=== PATIENT | female | born 2000 | race Caucasian/White ===

== ENCOUNTER 2023-08-26 18:02 | Emergency (ER) | payer SELFPAY ==
[2023-08-26 18:10] VITALS: BP 141/100
--- NOTE | 2023-08-26 19:35 | ED.GENMED ---
History of Present Illness
General
Chief Complaint: Musculo-Skeletal Complaint
Source: patient
Exam Limitations: none
Time Seen by Provider: 08/26/23 18:52
Nursing documentation reviewed up to this point in time: agreed with
Travel History
Have you had any contact with someone who has COVID-19?: No
Do you have any symptoms of coronavirus? Fever > 100 degrees, chills, cough, shortness of breath, sore throat, loss of taste or smell, muscle aches, or headache?: No
History of Present Illness
History of Present Illness:
Patient is a 23-year-old female who was brought to the ER by mom for evaluation. Patient reports yesterday she was squatting and stood up and felt a popping sensation in the back of her left ankle. She has been able to bear weight she does however
have some discomfort and has some tingling to the bottom of her foot. She has not rested it.
Review of Systems
Review of Systems
Allergies reviewed?: Yes
All Other Systems: ROS reviewed and negative except as documented in HPI and ROS
Constitutional: Reports no symptoms
Musculoskeletal: Reports other (left ankle pain/foot numbness )
Skin: Reports no symptoms
Neurological: Reports no symptoms
Psychiatric: Reports no symptoms
Phy Exam
General Physical Exam
General Presentation: no apparent distress
General age: appears stated age
General Skin: warm and dry
General Habitus: obese
General Mental: alert
Neurological Exam
Neurological Exam: alert and oriented x3
Musculoskeletal Exam
Musculoskeletal Exam: other (left lower extremity with strong pulses no obvious swelling mildly tender to posterior ankle however Achilles tendon intact mild nonspecific medial lateral tenderness normal dorsiflexion plantarflexion normal distal
sensation)
Skin Exam
Skin Exam: normal color and warm/dry
Psychiatric Exam
Psychiatric Exam: normal mood/affect
Course
Orders/Labs/Results
Orders:
Orders
08/26/23 18:14
Ankle, left 3 view CR [CR Ankle - Left Min 3 Views ] Urgent
Comment:
Reason For Exam: left ankle injury yesterday.
08/26/23 19:43
Vital Signs- Treatment ONCE
Frequency: Once
Vital Signs
Initial and Last Documented VS:
Initial Vital Signs
Temp Pulse Resp BP Pulse Ox
98.4 F 120 18 141/100 97
08/26/23 18:10 08/26/23 18:10 08/26/23 18:10 08/26/23 18:10 08/26/23 18:10
Last Documented Vital Signs
Temp Pulse Resp BP Pulse Ox
98.1 F 118 17 141/91 95
08/26/23 19:50 08/26/23 19:50 08/26/23 19:50 08/26/23 19:50 08/26/23 19:50
MDM/Problems Addressed
Differential Diagnosis Includes:
Not limited to sprain, fracture Achilles tendon injury
MDM/Problems Addressed:
Achilles tendon intact no obvious fracture on x-ray patient is ambulatory weightbearing in no acute distress. no calf tenderness .
Patient complains of some numbness to the bottom of her foot however she has normal sensation strong pulses that she has not rested this. I recommend patient icing elevating and resting. She has an Maurice wrap at home and does not want crutches as
she reports has crutches at home. With symptoms I did review the importance of outpatient follow-up with Ortho for reevaluation.
*Radiology
Radiology exam reviewed: radiology read reviewed
*Critical Care Note
Total Time (30-74mins, 75-104mins- exclusive of procedures): Not Applicable
ED Attending Note
-
Portions of this chart may have been created with voice recognition software.� Occasional wrong word or��sound alike� substitutions may have occurred due to the inherent limitations of voice recognition software.
Discharge Plan
Departure
Patient Disposition: Home (Routine Discharge)
Date of Disposition: 08/26/23
Time of Disposition: 19:43
Patient with high blood pressure during this ER visit?: Yes
Condition: Fair
Covid-19: Not Applicable
Discharge Problem:
Ankle sprain
Instructions: Ankle Sprain (DC)
Referrals:
Jae Hassan MD [Active] -
NONE,* [Family Provider] -
Stand Alone Forms: Return to Work
Activity Restrictions/Additional Instructions:
Keep elevated as much as possible . continue to ice affected area for next 24 hrs for 20 minutes at a time several times a day.
You may wear your Maurice wrap for support remove at night while sleeping you may also use crutches as needed.
Ibuprofen every 8 hours as needed.
Follow-up with orthopedics in the next several days as needed.
Interventions
Interventions:
*Risk Screen - Suicide Last Done: 08/26/23 18:10
*General Assessment Last Done: 08/26/23 18:10
*Neglect/Abuse Screening Last Done: 08/26/23 18:10
*Nursing Disposition Last Done: 08/26/23 20:00
ED-Musculoskeletal Assessment Last Done: 08/26/23 19:30
Discharge Date and Time
Discharge Date/Time: 08/26/23 20:00
Print Language: DJIBOUTIAN
[2023-08-26 19:50] VITALS: BP 141/91
== END 2023-08-26 20:00 | disposition home or self-care (01) ==
LOC: EMR 18:02
PROVIDERS: EMERGENCY PHYSICIAN Emergency Medicine
DX: S93.402A Sprain of unspecified ligament of left ankle, initial encounter (principal); X50.1XXA Overexertion from prolonged static or awkward postures, initial encounter; R03.0 Elevated blood-pressure reading, without diagnosis of hypertension
CPT/HCPCS: 99283; 73610

== ENCOUNTER 2023-08-30 09:12 | Emergency (ER) | payer OTHER, SELFPAY ==
[2023-08-30 09:28] VITALS: BP 165/102
[2023-08-30 09:59] LABS: COVID-19 Antigen Negative (Negative)
--- NOTE | 2023-08-30 10:19 | ED.GENMED ---
History of Present Illness
General
Chief Complaint: Cold/Flu/URI Symptoms
Source: patient
Exam Limitations: none
Time Seen by Provider: 08/30/23 10:08
Nursing documentation reviewed up to this point in time: agreed with
Travel History
Have you had any contact with someone who has COVID-19?: No
Do you have any symptoms of coronavirus? Fever > 100 degrees, chills, cough, shortness of breath, sore throat, loss of taste or smell, muscle aches, or headache?: Yes
Symptoms:: sore throat
History of Present Illness
History of Present Illness:
23-year-old female with a history of PCOS and GERD presents for sore throat over the past 4 days with nasal congestion, productive cough, and now laryngitis this morning. She has not had a fever. It is very painful to swallow but she is tolerating
her secretions. She is not having any shortness of breath or chest pain. She last took Tylenol cold and sinus yesterday
Past History
Past History
ED Past Medical History: GERD and Other (PCOS)
Social History
Tobacco: Non-smoker
Alcohol: None
Drug: None
Personal: Single
Living: with family
Employment: Employed
Review of Systems
Review of Systems
Allergies reviewed?: Yes
All Other Systems: Not applicable
Phy Exam
Physical Exam
Physical Exam:
GENERAL: Alert , in no apparent distress
EYE: pupils equal and reactive
NECK: Supple
ENT: b/l TM s clear, mild nasal mucosa inflammation pharynx erythematous some tonsillar hypertrophy 2+ with no obvious exudates, no unilateral tonsillar swelling, midline uvula, hoarse voice
CARDIAC: Regular rate and rhythm, no edema
LUNGS: Clear breath sounds bilaterally, no acute respiratory distress, no wheezes/rales/rhonchi, occ cough
NEUROLOGICAL: Alert and oriented, no focal neuro deficits
SKIN: Warm and dry, skin intact.
MUSCULOSKELETAL: No edema, well perfused.
PSYCH: Normal and appropriate interaction.
Course
Orders/Labs/Results
Orders:
Orders
08/30/23 09:32
COVID-19 Antigen Urgent
Source: Nasal Swab
Influenza A+B Rapid Molecular Urgent
[facility] Source: Nasal Swab
Specimen Description:
Date Specimen was Collected: 08/30/23
Time Specimen was Collected: 09:29
Rapid Strep Group A Urgent
[facility] Source: Throat/Pharynx
Specimen Description:
Date Specimen was Collected: 08/30/23
Time Specimen was Collected: :
08/30/23 10:19
Amoxicillin 875 mg/Clav 125 mg [Augmentin 875 mg/125 mg] 1 tablet PO NOW STA
Vital Signs
Initial and Last Documented VS:
Initial Vital Signs
Temp Pulse Resp BP Pulse Ox
98.4 F 98 17 165/102 99
08/30/23 09:28 08/30/23 09:28 08/30/23 09:28 08/30/23 09:28 08/30/23 09:28
Last Documented Vital Signs
Temp Pulse Resp BP Pulse Ox
98.4 F 98 17 165/102 99
08/30/23 09:28 08/30/23 09:28 08/30/23 09:28 08/30/23 09:28 08/30/23 09:28
MDM/Problems Addressed
Differential Diagnosis Includes:
URI, strep throat, mono, COVID, flu
MDM/Problems Addressed:
23-year-old female with 4 days of sore throat, nasal congestion, mild cough, no fever. She has a hoarse voice this morning. On exam patient is afebrile, nontoxic-appearing, tolerating her secretions, with 2-3+ tonsils, no exudate, erythematous
throat, hoarse voice but not hot potato voice, some nasal inflammation, clear lungs. It surprising that the patient's strep came back positive given her additional symptoms of congestion and cough. She does have some sinus drainage. She has been
on antibiotics previously and tolerated Augmentin well, will prescribe Augmentin. She has not had a antibiotics in at least 3 months.
*Critical Care Note
Total Time (30-74mins, 75-104mins- exclusive of procedures): Not Applicable
ED Attending Note
-
Portions of this chart may have been created with voice recognition software.� Occasional wrong word or��sound alike� substitutions may have occurred due to the inherent limitations of voice recognition software.
Discharge Plan
Departure
Patient Disposition: Home (Routine Discharge)
Date of Disposition: 08/30/23
Time of Disposition: 10:22
Patient with high blood pressure during this ER visit?: Yes
Condition: Fair
Covid-19: Negative COVID-19
Discharge Problem:
Strep pharyngitis
Instructions: Strep Throat (DC), BLOOD PRESSURE
Prescriptions:
New
amoxicillin-pot clavulanate 875-125 mg tablet
1 tab PO BID Qty: 20 0RF
Referrals:
UNKNOWN - PT DOES,NOT KNOW [Family Provider] -
Activity Restrictions/Additional Instructions:
You tested positive for strep throat. Take the medication as prescribed for 7 to 10 days. Take Tylenol or ibuprofen as needed for pain. Drink fluids, use a humidifier. Return for any concerns like not tolerating her secretions, severe sore
throat, unilateral sore throat, high fever on antibiotics, worsening voice change or any concerns
Interventions
Interventions:
*Risk Screen - Suicide Last Done: 08/30/23 10:51
*General Assessment Last Done: 08/30/23 10:51
*Neglect/Abuse Screening Last Done: 08/30/23 10:51
*Nursing Disposition Last Done: 08/30/23 10:51
ED- Pulmonary Assessment Last Done: 08/30/23 10:30
Discharge Date and Time
Discharge Date/Time: 08/30/23 10:52
Print Language: TELUGU
[2023-08-30] MEDS: AUGMENTIN 875 MG/125 MG 1 TABLET PO (10:40)
== END 2023-08-30 10:52 | disposition home or self-care (01) ==
LOC: EMR 09:12
PROVIDERS: Emergency Medicine; EMERGENCY PHYSICIAN Emergency Medicine
DX: J02.0 Streptococcal pharyngitis (principal); E28.2 Polycystic ovarian syndrome; K21.9 Gastro-esophageal reflux disease without esophagitis
CPT/HCPCS: 99283; 87070; 87502; 87811; 87880

== ENCOUNTER 2023-09-29 08:57 | Emergency (ER) | payer SELFPAY ==
[2023-09-29 09:18] VITALS: BP 154/106
--- NOTE | 2023-09-29 09:19 | ED.GENMED ---
History of Present Illness
General
Chief Complaint: Cough
Source: patient
Exam Limitations: none
Time Seen by Provider: 09/29/23 09:15
Travel History
Have you had any contact with someone who has COVID-19?: No
Do you have any symptoms of coronavirus? Fever > 100 degrees, chills, cough, shortness of breath, sore throat, loss of taste or smell, muscle aches, or headache?: Yes
Symptoms:: cough
History of Present Illness
History of Present Illness:
See MDM
Past History
Past History
ED Past Medical History: GERD and Other (PCOS)
Social History
Tobacco: Non-smoker
Alcohol: None
Drug: None
Personal: Single
Living: with family
Employment: Employed
Phy Exam
Physical Exam
Physical Exam:
See MDM
Course
Orders/Labs/Results
Orders:
Orders
09/29/23 09:19
Dexamethasone Pf [Decadron] 10 mg PO NOW STA
CR Chest - 2 Views Urgent
Comment:
Reason For Exam: Cough, SOB
Vital Signs
Initial and Last Documented VS:
Initial Vital Signs
Temp Pulse Resp BP Pulse Ox
98.2 F 102 17 154/106 97
09/29/23 09:18 09/29/23 09:18 09/29/23 09:18 09/29/23 09:18 09/29/23 09:18
Last Documented Vital Signs
Temp Pulse Resp BP Pulse Ox
98.2 F 102 17 154/106 97
09/29/23 09:18 09/29/23 09:18 09/29/23 09:18 09/29/23 09:18 09/29/23 09:18
MDM/Problems Addressed
Differential Diagnosis Includes:
HPI and MDM Narrative:
23-year-old female presenting with persistent cough and congestion. She was recently treated for strep throat 1 month ago. Her sore throat has improved drastically but she still has adductive cough. Patient concerned about possible pneumonia.
She does have a history of seasonal allergies but states this feels different. The productive cough is worse in the morning and clears somewhat throughout the day
Will start steroids and obtain chest x-ray
Physical exam
General: Well appearing and non-toxic
HEENT: protecting airway. Posterior pharynx mildly edematous with postnasal drip. No exudate
Neck: appears supple
CV: No evidence of cyanosis
Resp: No accessory muscle use. Lungs clear
Abd: Non-distended
Extremities: No deformities
Neuro: alert
Psych: Normal affect
Skin: Intact
Problems Addressed including Acute and Chronic Conditions affecting care:
1. URI
Acuity: acute
Prognosis: stable
Details: Will start chest x-ray to rule out pneumonia
Updates
Chest x-ray clear. Will place on Medrol Dosepak
Differential Diagnosis (but not limited to): Viral syndrome, pneumonia, allergic rhinitis
Testing considered: Strep throat testing
Drug therapy (if applicable): OTC meds, please see d/c instruction regarding Rx drugs
Amount and/or Complexity of Data Reviewed
Clinical info obtained from: Patient
External data reviewed: N/A
Labs I independently reviewed (but not limited to): N/A
Radiology: X-ray independently reviewed: Chest x-ray clear
Pulse Ox: not hypoxic
EKG independently reviewed: N/A
Commercial Driver'S License Driver: N/A
Critical Care: N/A
Risk of Complication:
Social Determinants of health: Good social support
Discussed with other providers: N/A
Escalation of Care includes Admit/Obs: After being observed in the Emergency Department, pt stable for discharge.
Occasional wrong word or 'sound a like' substitutions may have occurred due to the inherent limitations of voice recognition software. Read the chart carefully and recognize, using context, where substitutions have occurred.
*Critical Care Note
Total Time (30-74mins, 75-104mins- exclusive of procedures): Not Applicable
ED Attending Note
-
Portions of this chart may have been created with voice recognition software.� Occasional wrong word or��sound alike� substitutions may have occurred due to the inherent limitations of voice recognition software.
Discharge Plan
Departure
Patient Disposition: Home (Routine Discharge)
Date of Disposition: 09/29/23
Time of Disposition: 10:51
Patient with high blood pressure during this ER visit?: Yes
Discharge Problem:
URI with cough and congestion
Instructions: BLOOD PRESSURE
Prescriptions:
New
methylprednisolone [Medrol (Maximiliano)] 4 mg tablets,dose pack
See Rx Instructions .ROUTE .COMPLEX Qty: 21 0RF
Rx Instructions:
orally per package directions
No Action
amoxicillin-pot clavulanate 875-125 mg tablet
1 tab PO BID Qty: 20 0RF
Referrals:
NONE,* [Family Provider] -
Activity Restrictions/Additional Instructions:
Please return for any worsening symptoms.
You may return at any time if you have further concerns.
Please follow up with your doctor at the first available appointment, preferably this week.
Thank you for choosing [facility].
Interventions
Interventions:
*Risk Screen - Suicide Last Done: 09/29/23 09:18
*General Assessment Last Done: 09/29/23 09:18
*Neglect/Abuse Screening Last Done: 09/29/23 09:18
*ED COVID-19 Vaccine History Last Done: 09/29/23 09:18
ED- Pulmonary Assessment Last Done: 09/29/23 09:18
Discharge Date and Time
Print Language: CZECH
[2023-09-29] MEDS: DECADRON 10 MG PO (09:24)
== END 2023-09-29 11:02 | disposition home or self-care (01) ==
LOC: EMR 08:57
PROVIDERS: EMERGENCY PHYSICIAN Student in an Organized Health Care Education/Training Program
DX: J06.9 Acute upper respiratory infection, unspecified (principal); K21.9 Gastro-esophageal reflux disease without esophagitis; E28.2 Polycystic ovarian syndrome
CPT/HCPCS: 99283; 71046

== ENCOUNTER 2023-11-07 12:38 | Emergency (ER) | payer SELFPAY ==
[2023-11-07 12:39] VITALS: BP 176/106
[2023-11-07 13:23] VITALS: BMI 62.1
[2023-11-07 13:25] LABS: Urine Albumin Trace (Neg - Trace); Urine Bilirubin 1+ (Negative); Urine Character Clear (Clear); Urine Color Yellow; Urine Glucose Negative (Negative); Urine Ketone Trace (Negative); Urine Leukocyte Trace (Negative); Urine Nitrite Negative (Negative); Urine Occult Blood Negative (Negative); Urine Specific Gravity 1.025 (<1.030); Urine Urobilinogen Negative (Neg - 1+)
[2023-11-07 13:37] VITALS: BP 139/87
[2023-11-07 13:48] LABS: % Basophils 0.9 % (0-2); % Eosinophils 0.6 % (0-6); % Immature Granulocytes 0.6 % (0-0.5); % Lymphocytes 30.3 % (20.5-51.1); % Monocytes 8.9 % (1.7-9.3); % Neutrophils 58.7 % (42.2-75.2); Absolute Basophils 0.1 10^3/uL (0-0.2); Absolute Eosinophils 0.1 10^3/uL (0-0.7); Absolute Immature Granulocytes 0.1 10^3/uL (0-0.05); Absolute Monocytes 0.9 10^3/uL (0.1-0.6); Absolute Neutrophils 5.8 10^3/uL (1.4-6.5); Hematocrit 35.7 % (37.0-47.0); Hemoglobin 12.1 g/dL (12.0-16.0); Mean Corp Hgb Conc. 33.9 g/dL (33.0-37.0); Mean Corpuscular Volume 76.8 fL (81.0-99.0); Mean Platelet Volume 9.8 fL (7.4-10.4); Nucleated Red Blood Cells % 0 %; Platelet Count 348 10^3/uL (130-400); Red Blood Cell Count 4.65 10^6/uL (4.20-5.40); Red Cell Dist. Width 14.3 % (11.5-14.5)
[2023-11-07 13:53] LABS: Urine Bacteria Moderate (Negative); Urine Calcium Oxalate Crystals Present; Urine Red Blood Cell 0-2 /HPF (0-2)
[2023-11-07 14:06] LABS: ALT (SGPT) 126 U/L (0-35); AST (SGOT) 115 U/L (14-36); Albumin 4.5 g/dl (3.5-5.0); Alkaline Phosphatase 72 U/L (38-126); Blood Urea Nitrogen 12 mg/dl (7-17); Calcium 9.6 mg/dl (8.4-10.2); Carbon Dioxide 25 mmol/L (22-30); Chloride 105 mmol/L (98-107); Estimated Creatinine Clearance > 125 ml/min; Glucose 79 mg/dl (70-99); Potassium 4.2 mmol/L (3.5-5.1); Sodium 139 mmol/L (135-145); Total Bilirubin 0.5 mg/dl (0.2-1.3); Total Protein 6.9 g/dl (6.3-8.2); eGFR > 60.00
[2023-11-07 14:17] LABS: Troponin I < 0.012 ng/ml
[2023-11-07 14:29] VITALS: BP 127/81
[2023-11-07 14:39] LABS: D-Dimer 0.39 ug/mlFEU (0.00-0.50)
--- NOTE | 2023-11-07 14:41 | ED.GENMED ---
History of Present Illness
General
Chief Complaint: Chest Pain
Source: patient
Exam Limitations: none
Time Seen by Provider: 11/07/23 13:25
History of Present Illness
History of Present Illness:
23-year-old female presents with onset of chest pain heart racing and shortness of breath while at work today. She states she was watching children play outside and developed the symptoms. She notes since being here her symptoms have improved
somewhat but still present with some tightness. She has a history of PCOS. She is on metformin for this. No recent travel or surgery. She is not anticoagulated. She does not smoke. No leg swelling or calf pain. No other complaints at this time
Past History
Past History
ED Past Medical History: GERD and Other (PCOS)
Social History
Tobacco: Non-smoker
Alcohol: None
Drug: None
Personal: Single
Living: with family
Employment: Employed
Phy Exam
Physical Exam
Physical Exam:
General: Well-appearing obese female no acute respiratory distress
HEENT: Normocephalic atraumatic
Heart: Regular but tachycardic
Lungs: Breath sounds distant bilaterally secondary to body habitus but no obvious wheeze or rales
Extremities: No cyanosis or edema
Skin: Warm no rash
Neurologic: Alert and oriented x 3
Scores
Heart Score for Chest Pain Patients
STEMI patient?: No
History: Slightly or Non-Suspicious
ECG: Normal
Age: </= 45 years
Risk Factors: No Risk Factors
Troponin: </= Normal Limit
Heart Score for Chest Pain Patients: 0
Heart Score Risk: 2.5% MACE over next 6 weeks
Course
Orders/Labs/Results
Orders:
Orders
11/07/23 12:42
EKG [Electrocardiogram (*1)] Urgent
Reason for Study: Chest Pain
EKG- Treatment ONCE
11/07/23 13:12
Urinalysis Reflex To Culture Urgent
Date Specimen was Collected: 11/07/23
Time Specimen was Collected: 13:02
Urine Microscopic Reflex Cult Urgent
Urine Culture Urgent
[facility] Source: U
Specimen Description:
Date Specimen was Collected: 11/07/23
Time Specimen was Collected: 13:02
11/07/23 13:41
Complete Blood Count/With Diff Urgent
Comprehensive Metabolic Panel Urgent
Troponin I Urgent
11/07/23 14:13
D-Dimer Urgent
Abnormal Lab Results
11/07/23 11/07/23
13:12 13:41
Hct 35.7 L %
(37.0-47.0)
MCV 76.8 L fL
(81.0-99.0)
MCH 26.0 L pg
(27.0-31.0)
Abs Immat Gran (auto) 0.1 H 10^3/uL
(0-0.05)
Absolute Monos (auto) 0.9 H 10^3/uL
(0.1-0.6)
Immature Gran % 0.6 H %
(0-0.5)
Creatinine 0.5 L mg/dL
(0.6-1.0)
AST 115 H U/L
(14-36)
ALT 126 H U/L
(0-35)
Urine Ketones Trace A
(Negative)
Urine Bilirubin 1+ A
(Negative)
Leukocyte Esterase Rfl Trace A
(Negative)
Urine Bacteria (Reflex) Moderate A
(Negative)
11/07/23 13:41
11/07/23 13:41
Vital Signs
Initial and Last Documented VS:
Initial Vital Signs
Temp Pulse Resp BP Pulse Ox
99 F 115 16 176/106 96
11/07/23 12:39 11/07/23 12:39 11/07/23 12:39 11/07/23 12:39 11/07/23 12:39
Last Documented Vital Signs
Temp Pulse Resp BP Pulse Ox
99 F 56 16 127/81 98
11/07/23 12:39 11/07/23 14:29 11/07/23 14:29 11/07/23 14:29 11/07/23 14:29
MDM/Problems Addressed
Differential Diagnosis Includes:
Chest pain or shortness of breath. Consider arrhythmia unlikely be ACS however will check troponin. Consider PE given tachycardia. D-dimer pending. Imaging based on D-dimer result. Hydration ordered as well as this could be related to
dehydration
*Critical Care Note
Total Time (30-74mins, 75-104mins- exclusive of procedures): Not Applicable
Update Note
Update Note:
Troponin normal D-dimer normal. Patient feeling much better upon reassessment. She may have had a heat reaction being outside. She was hydrated here. Recommended continued hydration at home stable for discharge
ED Attending Note
-
Portions of this chart may have been created with voice recognition software.� Occasional wrong word or��sound alike� substitutions may have occurred due to the inherent limitations of voice recognition software.
Discharge Plan
Departure
Patient Disposition: Home (Routine Discharge)
Date of Disposition: 11/07/23
Time of Disposition: 15:38
Patient with high blood pressure during this ER visit?: No
Discharge Problem:
Chest pain
Instructions: Chest Pain PCP Follow Up
Prescriptions:
No Action
amoxicillin-pot clavulanate 875-125 mg tablet
1 tab PO BID Qty: 20 0RF
methylprednisolone [Medrol (Maximiliano)] 4 mg tablets,dose pack
See Rx Instructions .ROUTE .COMPLEX Qty: 21 0RF
Rx Instructions:
orally per package directions
Referrals:
[facility] [Outside]
NONE,* [Family Provider] -
Stand Alone Forms: Return to Work
Activity Restrictions/Additional Instructions:
Stay hydrated. Return here for worsening symptoms otherwise follow-up with family doctor
Interventions
Interventions:
*Risk Screen - Suicide Last Done: 11/07/23 12:39
*General Assessment Last Done: 11/07/23 12:39
*Neglect/Abuse Screening Last Done: 11/07/23 12:39
ED- Fall Risk Assessment Last Done: 11/07/23 13:24
*ED COVID-19 Vaccine History Last Done: 11/07/23 13:24
ED- Cardiac Assessment Last Done: 11/07/23 13:24
Discharge Date and Time
Print Language: LAO
== END 2023-11-07 15:57 | disposition home or self-care (01) ==
LOC: EMR 12:38
PROVIDERS: Physician Assistant; EMERGENCY PHYSICIAN Emergency Medicine
DX: R07.89 Other chest pain (principal)
CPT/HCPCS: 99284; 80053; 81003; 81015; 84484; 85025; 85379; 87086; 93005

== ENCOUNTER 2023-11-13 06:50 | Emergency (ER) | payer SELFPAY ==
[2023-11-13 06:52] VITALS: BP 154/117
--- NOTE | 2023-11-13 07:28 | ED.GENMED ---
History of Present Illness
General
Chief Complaint: Abdominal Symptoms
Time Seen by Provider: 11/13/23 07:07
History of Present Illness
History of Present Illness:
23 yo female presents for evaluation of loose stool x 5 days. Began after eating [employer]. 3-5 episodes daily, non watery, non bloody. Mild abd cramping and fatigue noted. Able to eat and drink otherwise. No ill contacts at home. Of note, was treated
w/ both abx and steroids in past 3 mos for upper respiratory symptoms
Past History
Past History
ED Past Medical History: GERD and Other (PCOS)
Social History
Tobacco: Non-smoker
Alcohol: None
Drug: None
Personal: Single
Living: with family
Employment: Employed
Review of Systems
Review of Systems
Allergies reviewed?: Yes
All Other Systems: ROS reviewed and negative except as documented in HPI and ROS
Phy Exam
Physical Exam
Physical Exam:
GEN: Well appearing, NAD, WDWN
HEENT: Oral mucosa moist, no scleral icterus
Cardiac: Regular rate
Lung: No respiratory distress, no tachypnea
MSK: No gross deformity or injuries
Skin: Good color, no pallor or jaundice, no rashes
Neuro: AO x3, moves all extremities freely
Psych: Calm, cooperative
Course
Orders/Labs/Results
Orders:
Orders
11/13/23 07:17
0.9% Sodium Chloride 1000 ml [Nss] 1,000 ml IV BOLUS
11/13/23 07:32
Complete Blood Count/No Diff Urgent
Comprehensive Metabolic Panel Urgent
Stool Culture Urgent
[facility] Source: Feces/Stool
Specimen Description:
Date Specimen was Collected: 11/13/23
Time Specimen was Collected: 07:21
Abnormal Lab Results
11/13/23
07:32
MCV 78.2 L fL
(81.0-99.0)
MCH 25.9 L pg
(27.0-31.0)
Glucose 103 H mg/dl
(70-99)
AST 151 H U/L
(14-36)
ALT 149 H U/L
(0-35)
11/13/23 07:32
11/13/23 07:32
Vital Signs
Initial and Last Documented VS:
Initial Vital Signs
Temp Pulse Resp BP Pulse Ox
98.7 F 104 16 154/117 96
11/13/23 06:52 11/13/23 06:52 11/13/23 06:52 11/13/23 06:52 11/13/23 06:52
Last Documented Vital Signs
Temp Pulse Resp BP Pulse Ox
98.7 F 96 15 147/96 98
11/13/23 06:52 11/13/23 08:27 11/13/23 08:27 11/13/23 08:27 11/13/23 08:27
MDM/Problems Addressed
MDM/Problems Addressed:
23 yo female presents with diarrhea, non watery. Does have some C diff risk factors but stool specimen provided in ED clearly not sales account representative of C diff. Stool Cx pending. Labs reassuring, educated on supportive care. Also discussed gradual uptick
in LFTs, needs PCP f/u for this, likely due to fatty liver disease
*Critical Care Note
Total Time (30-74mins, 75-104mins- exclusive of procedures): Not Applicable
ED Attending Note
-
Portions of this chart may have been created with voice recognition software.� Occasional wrong word or��sound alike� substitutions may have occurred due to the inherent limitations of voice recognition software.
Discharge Plan
Departure
Patient Disposition: Home (Routine Discharge)
Date of Disposition: 11/13/23
Time of Disposition: 07:58
Patient with high blood pressure during this ER visit?: Yes
Discharge Problem:
Diarrhea, Transaminitis
Instructions: Diarrhea in teens and adults
Prescriptions:
New
ondansetron 4 mg tablet,disintegrating
4 mg PO TIDPRN PRN (Reason: nausea/vomiting) Qty: 10 0RF
No Action
amoxicillin-pot clavulanate 875-125 mg tablet
1 tab PO BID Qty: 20 0RF
methylprednisolone [Medrol (Maximiliano)] 4 mg tablets,dose pack
See Rx Instructions .ROUTE .COMPLEX Qty: 21 0RF
Rx Instructions:
orally per package directions
Stand Alone Forms: Return to Work
Activity Restrictions/Additional Instructions:
Your liver enzymes are elevated, more so than your last visit. This likely represents fatty liver disease, however should be followed routinely by your primary doctor
Your stool test should be resulted in 48 hours
Interventions
Interventions:
*Risk Screen - Suicide Last Done: 11/13/23 07:07
*Neglect/Abuse Screening Last Done: 11/13/23 07:07
ED- Fall Risk Assessment Last Done: 11/13/23 07:17
*ED COVID-19 Vaccine History Last Done: 11/13/23 06:52
*Nursing Disposition Last Done: 11/13/23 08:27
QA-Utowdn-Abhhigtjvu Assessment Last Done: 11/13/23 07:17
Discharge Date and Time
Discharge Date/Time: 11/13/23 08:35
Print Language: ARMENIAN
[2023-11-13 07:30] VITALS: BP 147/95
[2023-11-13] MEDS: NSS 1000 IV (07:39)
[2023-11-13 07:51] LABS: Hematocrit 38.4 % (37.0-47.0); Hemoglobin 12.7 g/dL (12.0-16.0); Mean Corp Hgb Conc. 33.1 g/dL (33.0-37.0); Mean Corpuscular Hgb 25.9 pg (27.0-31.0); Mean Corpuscular Volume 78.2 fL (81.0-99.0); Mean Platelet Volume 10.1 fL (7.4-10.4); Platelet Count 330 10^3/uL (130-400); Red Blood Cell Count 4.91 10^6/uL (4.20-5.40); Red Cell Dist. Width 14.3 % (11.5-14.5); White Blood Cell Count 7.3 10^3/uL (4.8-10.8)
[2023-11-13 07:54] LABS: ALT (SGPT) 149 U/L (0-35); AST (SGOT) 151 U/L (14-36); Albumin 4.3 g/dl (3.5-5.0); Alkaline Phosphatase 76 U/L (38-126); Blood Urea Nitrogen 11 mg/dl (7-17); Calcium 9.3 mg/dl (8.4-10.2); Carbon Dioxide 25 mmol/L (22-30); Chloride 103 mmol/L (98-107); Glucose 103 mg/dl (70-99); Potassium 4.4 mmol/L (3.5-5.1); Sodium 139 mmol/L (135-145); Total Bilirubin 0.5 mg/dl (0.2-1.3); Total Protein 6.8 g/dl (6.3-8.2); eGFR > 60.00
[2023-11-13 08:27] VITALS: BP 147/96
== END 2023-11-13 08:35 | disposition home or self-care (01) ==
LOC: EMR 06:50
PROVIDERS: Physician Assistant; EMERGENCY PHYSICIAN Emergency Medicine
DX: R19.7 Diarrhea, unspecified (principal); R74.01 Elevation of levels of liver transaminase levels; K21.9 Gastro-esophageal reflux disease without esophagitis; E28.2 Polycystic ovarian syndrome
CPT/HCPCS: 99282; 96360; 80053; 85027; 87045; 87046; 87077; 87427

== ENCOUNTER 2024-01-07 19:27 | Emergency (ER) | payer OTHER, SELFPAY ==
--- NOTE | 2024-01-07 19:30 | ED.PDOC.TRB ---
ED Provider Triage
-
Patient seen by provider in Triage?: Seen in Triage
This is a 23 year old female that comes in with c/o UTI symptoms. States that this started 3 days ago. States that she is having urinary frequency and burning.
[2024-01-07 19:33] VITALS: BP 171/118
[2024-01-07 19:48] LABS: Urine Albumin Trace (Neg - Trace); Urine Bilirubin 1+ (Negative); Urine Character Clear (Clear); Urine Color Yellow; Urine Glucose Negative (Negative); Urine Ketone Negative (Negative); Urine Leukocyte 1+ (Negative); Urine Nitrite Negative (Negative); Urine Occult Blood Negative (Negative); Urine Specific Gravity 1.025 (<1.030); Urine Urobilinogen Negative (Neg - 1+)
[2024-01-07 19:58] LABS: Urine Red Blood Cell 0-2 /HPF (0-2); Urine Squamous Cell >30 /LPF (Few)
[2024-01-07 19:59] LABS: Urine Bacteria Many (Negative)
--- NOTE | 2024-01-07 20:40 | ED.GENMED ---
History of Present Illness
General
Chief Complaint: Urinary Symptoms
Source: patient
Exam Limitations: none
History of Present Illness
History of Present Illness:
This is a 23 year old female that comes in with c/o urinary burning and frequency. States that this started about 3 days ago. States that she just felt cold but no shaking chills. States that she has had abd discomfort that feels like period
cramping. Denies any fever, chest pain, SOB, nausea, vomiting, diarrhea, headache dizziness.
Past History
Past History
ED Past Medical History: GERD, HTN and Other (PCOS)
ED Past Surgical History: None
Social History
Tobacco: Non-smoker
Alcohol: None
Drug: Marijuana
Personal: Single
Living: with family
Employment: Employed
Review of Systems
Review of Systems
All Other Systems: ROS reviewed and negative except as documented in HPI and ROS
Constitutional: Reports no symptoms; Denies fever or chills
EENT: Reports no symptoms
Respiratory: Reports no symptoms
Cardiac: Reports no symptoms
ABD/GI: Reports abdominal pain (Cramping feeling); Denies nausea, vomiting or diarrhea
: Reports dysuria and frequency; Denies urgency
Musculoskeletal: Reports no symptoms
Skin: Reports no symptoms
Neurological: Reports no symptoms; Denies dizzy or headache
Psychiatric: Reports no symptoms
Phy Exam
General Physical Exam
General Presentation: well appearing and no apparent distress
General age: appears stated age
General Skin: warm and dry
General Habitus: normal
General Mental: alert
General Hydration: appears well hydrated
Eye Exam
Eye Exam: EOMI
Musculoskeletal Exam
Musculoskeletal Exam: full ROM and no edema
Skin Exam
Skin Exam: normal color, warm/dry, no rash and no petechia
Psychiatric Exam
Psychiatric Exam: normal mood/affect
Course
Orders/Labs/Results
Orders:
Orders
01/07/24 19:42
Urinalysis Reflex To Culture Urgent
Date Specimen was Collected: 01/07/24
Time Specimen was Collected: 19:35
Urine Microscopic Reflex Cult Urgent
Urine Culture Urgent
SOCORRO Source: U
Specimen Description:
Date Specimen was Collected: 01/07/24
Time Specimen was Collected: 19:35
Abnormal Lab Results
01/07/24
19:42
Urine Bilirubin 1+ A
(Negative)
Leukocyte Esterase Rfl 1+ A
(Negative)
Urine WBC (Reflex) 11-15 A /HPF
(0-5)
Urine Bacteria (Reflex) Many A
(Negative)
Urine positive for infection
Vital Signs
Initial and Last Documented VS:
Initial Vital Signs
Temp Pulse Resp BP Pulse Ox
97.8 F 102 20 171/118 96
01/07/24 19:33 01/07/24 19:33 01/07/24 19:33 01/07/24 19:33 01/07/24 19:33
Last Documented Vital Signs
Temp Pulse Resp BP Pulse Ox
97.8 F 102 20 171/118 96
01/07/24 19:33 01/07/24 19:33 01/07/24 19:33 01/07/24 19:33 01/07/24 19:33
MDM/Problems Addressed
Differential Diagnosis Includes:
UTI,
MDM/Problems Addressed:
THIS IS A @$ YEAR OLD FEMALE THAT COMES IN WITH C?O URINARY SYMPTOMS.
Will get urine.
Spoke with patient and explained that her urine is questionable for infection. However, with patient c/o burning, frequency will treat for UTI.
Chronic conditions affecting care:
NA
Acute Exacerbation and/or Progression of Chronic Illness:
NA
*Pulse Oximetry
Patient hypoxic: no
*EKG
Interpreted by ED Provider?: NA
Rate: EKG- N/A
*Pot Press Operator Interpretation
Rate: Pot Press Operator- N/A
*Critical Care Note
Total Time (30-74mins, 75-104mins- exclusive of procedures): Not Applicable
ED Attending Note
-
Portions of this chart may have been created with voice recognition software.� Occasional wrong word or��sound alike� substitutions may have occurred due to the inherent limitations of voice recognition software.
Discharge Plan
Departure
Patient Disposition: Home (Routine Discharge)
Date of Disposition: 01/07/24
Time of Disposition: 20:47
Patient with high blood pressure during this ER visit?: Yes
Condition: Good
Covid-19: Not Applicable
Discharge Problem:
Urinary tract infection
Instructions: Urinary Tract Infection, Adult (DC), BLOOD PRESSURE
Prescriptions:
New
cephalexin 500 mg capsule
500 mg PO BID 7 Days Qty: 13 0RF
Activity Restrictions/Additional Instructions:
As discussed, your urine is contaminated but there may be possible infection. Please increase your water intake to 8-8oz glasses daily. A prescription has been sent to your pharmacy. Please take as directed until finished. Follow up with the family
doctor for a repeat urine to make sure that the infection is gone. IF YOU HAVE FEVER, INCREASED OR CHANGING ABD PAIN, OR YOU HAVE ANY OTHER CONCERNS PLEASE RETURN TO THE EMERGENCY ROOM.
Discharge Date and Time
Print Language: [place] LEONE[place]
[2024-01-07 20:43] VITALS: BP 131/85
[2024-01-07] MEDS: Pyridium 200 MG PO (20:50)
[2024-01-07] MEDS: KEFLEX 500 MG PO (20:50)
== END 2024-01-07 20:56 | disposition home or self-care (01) ==
LOC: EMR 19:27
PROVIDERS: Clinical Nurse Specialist Family Health; EMERGENCY PHYSICIAN Emergency Medicine
DX: N39.0 Urinary tract infection, site not specified (principal); I10 Essential (primary) hypertension
CPT/HCPCS: 99283; 81003; 81015; 87086

== ENCOUNTER 2024-01-28 10:39 | Emergency (ER) | payer OTHER, SELFPAY ==
[2024-01-28 10:51] VITALS: BP 166/112
[2024-01-28 11:30] VITALS: BP 141/71
[2024-01-28 11:43] VITALS: BMI 58.6
--- NOTE | 2024-01-28 12:01 | ED.GENMED ---
History of Present Illness
<Anastasiia Easton PA-C - Last Filed: 01/28/24 15:32>
General
Chief Complaint: Chest Pain
Source: patient
Exam Limitations: none
Time Seen by Provider: 01/28/24 11:38
Nursing documentation reviewed up to this point in time: agreed with
History of Present Illness
History of Present Illness:
Patient is a 23 year old female with hx HTN, PCOS, GERD presenting for evaluation of mid sternal chest pain ongoing over the past three days. Patient describes a dull ache in her substernal chest relatively constant since onset. Symptoms mildly
worse with exertion and deep inspiration. Associated with mild shortness of breath. Patient denies any fever, chills, cough, back pain, abdominal pain. No pain or swelling her lower extremities.
Patient does note pain seemed slightly worse today and she woke up with a mild headache prompting her visit to the emergency department today.
Patient denies any recent travel. No recent surgeries. No exogenous hormone use. No personal or family history of blood clots or clotting disorders.
Past History
<Anastasiia Easton PA-C - Last Filed: 01/28/24 15:32>
Past History
ED Past Medical History: GERD, HTN and Other (PCOS)
ED Past Surgical History: None
Social History
Tobacco: Non-smoker
Alcohol: None
Drug: Marijuana
Personal: Single
Living: with family
Employment: Employed
Review of Systems
<Anastasiia Easton PA-C - Last Filed: 01/28/24 15:32>
Review of Systems
Allergies reviewed?: Yes
All Other Systems: ROS reviewed and negative except as documented in HPI and ROS
Phy Exam
<Anastasiia Easton PA-C - Last Filed: 01/28/24 15:32>
Physical Exam
Physical Exam:
Vitals: Hypertensive, tachycardic. Otherwise vital signs stable.
General: Patient is well appearing, no acute distress
Skin: Warm and dry, no rashes or lesions
Head: Normocephalic, atraumatic
Eyes: Sclera nonicteric. EOMs intact. No nystagmus.
Throat: Protecting airway
Neck: Normal ROM, no cervical spine tenderness, no meningismus
Cardiac: Regular rate and rhythm, no murmurs.
Pulm: Normal respiratory effort, no wheezes, rales, rhonchi heard on exam.
Abdomen: No abdominal tenderness.
Extremities: No evidence of cyanosis or edema. Great distal pulses
Neuro: Great distal pulses.
Psychiatric: Normal affect.
Scores
<Anastasiia Easton PA-C - Last Filed: 01/28/24 15:32>
Heart Score for Chest Pain Patients
STEMI patient?: No
History: Slightly or Non-Suspicious
ECG: Normal
Age: </= 45 years
Risk Factors: 1 or 2 Risk Factors
Troponin: </= Normal Limit
Heart Score for Chest Pain Patients: 1
Heart Score Risk: 2.5% MACE over next 6 weeks
Course
<Anastasiia Easton PA-C - Last Filed: 01/28/24 15:32>
Orders/Labs/Results
Orders:
Orders
01/28/24 10:39
ECG [Electrocardiogram (*1)] Urgent
Reason for Study: Chest Pain
EKG- Treatment ONCE
01/28/24 11:46
Electrocardiogram (*1) Urgent
Reason for Study: Chest Pain
Cardiac Monitoring- Treatment ONCE
IV Insert/Care/Rem.- Treatment PRN
O2 Therapy [RESP] Urgent
Titrate/Wean O2 to maintain O2 sat greater than (%): 90
Special Instructions: Maintain sats >/=90%
Pulse Ox/spot Check [RESP] Urgent
Quantity: 1
Special Instructions: ON ROOM AIR
01/28/24 11:55
Complete Blood Count/With Diff Urgent
Comprehensive Metabolic Panel Urgent
HCG, Serum Qualitative Screen Urgent
Comment: ADD ON
Troponin I Urgent
01/28/24 12:03
0.9% Sodium Chloride 1000 ml [Nss] 1,000 ml IV BOLUS
Ketorolac [Toradol] 15 mg IV NOW STA
01/28/24 12:17
Add On- LAB Urgent
Tests Added?: serum qual hcg
01/28/24 13:27
D-Dimer Urgent
01/28/24 14:01
CR Chest - 2 Views Urgent
Comment:
Reason For Exam: substernal chest pain
Abnormal Lab Results
01/28/24
11:55
MCV 80.7 L fL
(81.0-99.0)
MCH 26.6 L pg
(27.0-31.0)
MCHC 32.9 L g/dL
(33.0-37.0)
Absolute Monos (auto) 0.7 H 10^3/uL
(0.1-0.6)
Creatinine 0.5 L mg/dL
(0.6-1.0)
Glucose 112 H mg/dl
(70-99)
AST 80 H U/L
(14-36)
ALT 105 H U/L
(0-35)
01/28/24 11:55
01/28/24 11:55
Vital Signs
Initial and Last Documented VS:
Initial Vital Signs
Temp Pulse Resp BP Pulse Ox
98.5 F 111 18 166/112 96
01/28/24 10:51 01/28/24 10:51 01/28/24 10:51 01/28/24 10:51 01/28/24 10:51
Last Documented Vital Signs
Temp Pulse Resp BP Pulse Ox
98.5 F 100 24 128/78 96
01/28/24 10:51 01/28/24 13:45 01/28/24 13:45 01/28/24 13:00 01/28/24 13:45
<Lb You, DO - Last Filed: 01/28/24 14:35>
Orders/Labs/Results
Orders:
Orders
01/28/24 10:39
ECG [Electrocardiogram (*1)] Urgent
Reason for Study: Chest Pain
EKG- Treatment ONCE
01/28/24 11:46
Electrocardiogram (*1) Urgent
Reason for Study: Chest Pain
Cardiac Monitoring- Treatment ONCE
IV Insert/Care/Rem.- Treatment PRN
O2 Therapy [RESP] Urgent
Titrate/Wean O2 to maintain O2 sat greater than (%): 90
Special Instructions: Maintain sats >/=90%
Pulse Ox/spot Check [RESP] Urgent
Quantity: 1
Special Instructions: ON ROOM AIR
01/28/24 11:55
Complete Blood Count/With Diff Urgent
Comprehensive Metabolic Panel Urgent
HCG, Serum Qualitative Screen Urgent
Comment: ADD ON
Troponin I Urgent
01/28/24 12:03
0.9% Sodium Chloride 1000 ml [Nss] 1,000 ml IV BOLUS
Ketorolac [Toradol] 15 mg IV NOW STA
01/28/24 12:17
Add On- LAB Urgent
Tests Added?: serum qual hcg
01/28/24 13:27
D-Dimer Urgent
01/28/24 14:01
CR Chest - 2 Views Urgent
Comment:
Reason For Exam: substernal chest pain
Abnormal Lab Results
01/28/24
11:55
MCV 80.7 L fL
(81.0-99.0)
MCH 26.6 L pg
(27.0-31.0)
MCHC 32.9 L g/dL
(33.0-37.0)
Absolute Monos (auto) 0.7 H 10^3/uL
(0.1-0.6)
Creatinine 0.5 L mg/dL
(0.6-1.0)
Glucose 112 H mg/dl
(70-99)
AST 80 H U/L
(14-36)
ALT 105 H U/L
(0-35)
01/28/24 11:55
01/28/24 11:55
Vital Signs
Initial and Last Documented VS:
Initial Vital Signs
Temp Pulse Resp BP Pulse Ox
98.5 F 111 18 166/112 96
01/28/24 10:51 01/28/24 10:51 01/28/24 10:51 01/28/24 10:51 01/28/24 10:51
Last Documented Vital Signs
Temp Pulse Resp BP Pulse Ox
98.5 F 100 24 128/78 96
01/28/24 10:51 01/28/24 13:45 01/28/24 13:45 01/28/24 13:00 01/28/24 13:45
<Anastasiia Easton PA-C - Last Filed: 01/28/24 15:32>
MDM/Problems Addressed
Differential Diagnosis Includes:
Not limited to: Muscle strain, GERD, viral illness, dehydration, doubt ACS or PE
MDM/Problems Addressed:
23-year-old female presenting with 3 days of substernal chest discomfort and mild shortness of breath. Notes mild pleuritic and exertional component to symptoms. No known inciting trauma or event. Patient tachycardic and hypertensive on arrival
to emergency department. Oxygenating well at 96% on room air. Physical exam as above. Patient well-appearing, in no apparent respiratory distress. Mildly tachycardic, regular heart rhythm. Mild reproducible tenderness to mid chest. Lungs are
clear to auscultation bilaterally. Patient has no lower extremity edema, erythema, or tenderness. Patient perfusing well with great distal pulses. No focal neurologic deficits. Differential somewhat broad at this time although considerations
include muscle strain, costochondritis, pleurisy, viral illness, pericarditis. Doubt ACS. Lower suspicion for PE although given tachycardia and mild pleuritic component�will obtain D-dimer. Will check basic labs, troponin, . Will give
fluids and Toradol. EKG nonischemic. Will reassess
Chronic conditions affecting care:
Hypertension
Acute Exacerbation and/or Progression of Chronic Illness:
Acutely hypertensive
<Anastasiia Easton PA-C - Last Filed: 01/28/24 15:32>
*Radiology
Radiology exam reviewed: preliminary read by ED provider and radiology read reviewed
*Pulse Oximetry
Patient hypoxic: no
*EKG
Interpreted by ED Provider?: Yes
EKG Intrepretation Date: 01/28/24
Interpretation: normal
Comparison EKG: no changes
Heart Rate: 102
Rate: tachycardiac
Rhythm: sinus
[place]: normal axis
Interval: normal interval
QRS Pattern: normal QRS
Ischemia: no ischemia
*[employer] Interpretation
Rate: tachycardiac
Interpretation: normal
Heart Rate: 101
Rhythm: sinus
*Critical Care Note
Total Time (30-74mins, 75-104mins- exclusive of procedures): Not Applicable
<Anastasiia Easton PA-C - Last Filed: 01/28/24 15:32>
Update Note
Update Note:
Update 1:26 PM: Into reassess patient at bedside. Headache and chest pain some improved following Toradol. Labs reviewed. No clinically significant abnormalities. Transaminitis noted which does appear to be chronic. Troponin is negative and
given symptoms been ongoing for > 36 hours�feel this is sufficient to rule out acute [place]. Do suspect musculoskeletal cause although D-dimer pending. plan for chest x-ray versus CTA chest depending on results of D-dimer.
Update: Fortunately D-dimer was within normal range. Did obtain chest x-ray which shows no acute abnormalities. Patient has remained stable with improvement in pain following Toradol. Suspect likely musculoskeletal cause. Patient stable for
discharge with close primary care follow-up. Return precaution discussed. Patient seen with attending physician.
ED Attending Note
<Anastasiia Easton PA-C - Last Filed: 01/28/24 15:32>
-
Portions of this chart may have been created with voice recognition software.� Occasional wrong word or��sound alike� substitutions may have occurred due to the inherent limitations of voice recognition software.
<Lb You DO - Last Filed: 01/28/24 14:35>
ED Attending Note
Patient seen and examined by attending physician: Yes
I performed a history and physical exam of patient and discussed management with resident, I reviewed resident's note and agree with documented findings and plan of care.: Yes
ED Attending Note:
I have reviewed and agree with his and treatment plan by Anastasiia Oropeza. My exam reveals 23-year-old female with chest wall tenderness. Suspect musculoskeletal cause. No acute findings on EKG. Will check D-dimer and chest x-ray.
Discharge Plan
Departure
Patient Disposition: Home (Routine Discharge)
Date of Disposition: 01/28/24
Time of Disposition: 15:11
Patient with high blood pressure during this ER visit?: Yes
Covid-19: Not Applicable
Discharge Problem:
Chest pain
Instructions: BLOOD PRESSURE, Chest Pain
Prescriptions:
No Action
cephalexin 500 mg capsule
500 mg PO BID 7 Days Qty: 13 0RF
Referrals:
NONE,* [Family Provider] -
Activity Restrictions/Additional Instructions:
RETURN TO THE EMERGENCY DEPARTMENT WITH FEVERS, CHILLS, SHORTNESS OF BREATH, WORSENING CHEST PAIN, SEVERE HEADACHE, WORSENING IN CURRENT SYMPTOMS, OR ANY OTHER CONCERNS
-You can take Motrin at home as needed for discomfort. Stay well-hydrated. Take it easy over the next few days. Avoid any significant physical exertion that worsen symptoms
-Follow-up with primary care for further evaluation/management.
Monitor symptoms closely return to the emergency department with any acute worse/new symptoms
Interventions
Interventions:
*Risk Screen - Suicide Last Done: 01/28/24 10:51
*General Assessment Last Done: 01/28/24 10:51
*Neglect/Abuse Screening Last Done: 01/28/24 10:51
*ED COVID-19 Vaccine History Last Done: 01/28/24 12:00
Discharge Date and Time
Print Language: MALAY
[2024-01-28 12:12] LABS: % Basophils 0.7 % (0-2); % Eosinophils 2.1 % (0-6); % Immature Granulocytes 0.3 % (0-0.5); % Lymphocytes 30.5 % (20.5-51.1); % Monocytes 7.7 % (1.7-9.3); % Neutrophils 58.7 % (42.2-75.2); Absolute Basophils 0.1 10^3/uL (0-0.2); Absolute Eosinophils 0.2 10^3/uL (0-0.7); Absolute Lymphocytes 2.8 10^3/uL (1.2-3.4); Absolute Monocytes 0.7 10^3/uL (0.1-0.6); Absolute Neutrophils 5.4 10^3/uL (1.4-6.5); Hematocrit 37.7 % (37.0-47.0); Hemoglobin 12.4 g/dL (12.0-16.0); Mean Corp Hgb Conc. 32.9 g/dL (33.0-37.0); Mean Corpuscular Hgb 26.6 pg (27.0-31.0); Mean Corpuscular Volume 80.7 fL (81.0-99.0); Mean Platelet Volume 10.4 fL (7.4-10.4); Nucleated Red Blood Cells % 0 %; Platelet Count 311 10^3/uL (130-400); Red Blood Cell Count 4.67 10^6/uL (4.20-5.40); Red Cell Dist. Width 13.9 % (11.5-14.5); White Blood Cell Count 9.1 10^3/uL (4.8-10.8)
[2024-01-28 12:29] LABS: ALT (SGPT) 105 U/L (0-35); AST (SGOT) 80 U/L (14-36); Alkaline Phosphatase 84 U/L (38-126); Blood Urea Nitrogen 11 mg/dl (7-17); Calcium 9.5 mg/dl (8.4-10.2); Carbon Dioxide 26 mmol/L (22-30); Chloride 103 mmol/L (98-107); Estimated Creatinine Clearance > 125 ml/min; Glucose 112 mg/dl (70-99); Potassium 4.4 mmol/L (3.5-5.1); Sodium 139 mmol/L (135-145); Total Bilirubin 0.3 mg/dl (0.2-1.3); Total Protein 6.3 g/dl (6.3-8.2); eGFR > 60.00
[2024-01-28] MEDS: NSS 1000 IV (12:32)
[2024-01-28] MEDS: TORADOL 15 MG IV (12:33)
[2024-01-28 12:49] LABS: Troponin I < 0.012 ng/ml
[2024-01-28 13:00] VITALS: BP 128/78
[2024-01-28 13:26] LABS: HCG, Serum Qualitative Screen Negative
[2024-01-28 13:55] LABS: D-Dimer 0.39 ug/mlFEU (0.00-0.50)
[2024-01-28 15:34] VITALS: BP 143/99
[2024-01-28 15:49] VITALS: BP 143/89
== END 2024-01-28 15:52 | disposition home or self-care (01) ==
LOC: EMR 10:39
PROVIDERS: Physician Assistant; EMERGENCY PHYSICIAN Emergency Medicine
DX: R07.89 Other chest pain (principal); R06.02 Shortness of breath; R51.9 Headache, unspecified; R00.0 Tachycardia, unspecified; I10 Essential (primary) hypertension; E28.2 Polycystic ovarian syndrome; K21.9 Gastro-esophageal reflux disease without esophagitis; F41.9 Anxiety disorder, unspecified; F31.81 Bipolar II disorder; F43.10 Post-traumatic stress disorder, unspecified; Z87.891 Personal history of nicotine dependence; Z88.8 Allergy status to other drugs, medicaments and biological substances
CPT/HCPCS: 99285; 96374; 96361; 94760; 71046; 80053; 84484; 84703; 85025; 85379; 93005

== ENCOUNTER 2024-02-10 07:09 | Emergency (ER) | payer OTHER, SELFPAY ==
[2024-02-10 07:13] VITALS: BP 161/98
--- NOTE | 2024-02-10 07:42 | ED.GENMED ---
History of Present Illness
General
Chief Complaint: Dental Problem
Source: patient
Time Seen by Provider: 02/10/24 07:32
History of Present Illness
History of Present Illness:
23yoF with a history of PCOS, GERD, and bipolar disorder presenting for evaluation of dental pain. Patient noticed a 'hole' in her left upper canine about a month ago. She started to have pain in the tooth 3 days ago. She has been taking dual
action Tylenol and ibuprofen without much relief. She is worried that she is developing an infection. She denies any fevers, chills, dysphagia. Patient is scheduled to receive dental insurance at the end of this month.
Past History
Past History
ED Past Medical History: GERD, HTN and Other (PCOS)
ED Past Surgical History: None
Social History
Tobacco: Non-smoker
Alcohol: None
Drug: Marijuana
Personal: Single
Living: with family
Employment: Employed
Phy Exam
General Physical Exam
General Presentation: well appearing and no apparent distress
General age: appears stated age
General Skin: warm and dry
General Habitus: normal
General Mental: alert
ENT Exam
ENT Exam: neck supple, normocephalic and other (Dental caries noted. +Tenderness to tooth #11 and #12. Minimal gingival swelling. No periapical abscess. No facial swelling or elevation of floor of mouth. Normal phonation. Tolerating oral secretions
without difficulty. )
Pulmonary Exam
Pulmonary Exam: no respiratory distress
Shyanne Coma Scale
Eye Opening: Spontaneous
Verbal Response: Oriented
Motor Response: Obeys Commands
GCS Total Score: 15
Skin Exam
Skin Exam: normal color and warm/dry
Psychiatric Exam
Psychiatric Exam: normal mood/affect
Course
Orders/Labs/Results
Orders:
Orders
02/10/24 07:40
Ketorolac [Toradol] 30 mg IM NOW STA
Penicillin V Potassium [Pen Vk] 500 mg PO NOW STA
Vital Signs
Initial and Last Documented VS:
Initial Vital Signs
Temp Pulse Resp BP Pulse Ox
99.2 F 92 20 161/98 96
02/10/24 07:13 02/10/24 07:13 02/10/24 07:13 02/10/24 07:13 02/10/24 07:13
Last Documented Vital Signs
Temp Pulse Resp BP Pulse Ox
99.2 F 92 20 161/98 96
02/10/24 07:13 02/10/24 07:13 02/10/24 07:13 02/10/24 07:13 02/10/24 07:13
MDM/Problems Addressed
Differential Diagnosis Includes:
23yoF here with L upper dental pain x 3 days. No f/c. VSS. She is well appearing in no distress. Dental caries noted on exam with tenderness to tooth 11 and 12. No apical abscess, overlying facial swelling/cellulitis, or signs of Jhon's.
IM Toradol ordered for pain. She was started on a course of penicillin. She was given contact information for a local free dental clinic. She is scheduled to receive dental insurance at the end of the month. ED return precautions discussed. She was
discharged in stable condition.
*Critical Care Note
Total Time (30-74mins, 75-104mins- exclusive of procedures): Not Applicable
ED Attending Note
-
Portions of this chart may have been created with voice recognition software.� Occasional wrong word or��sound alike� substitutions may have occurred due to the inherent limitations of voice recognition software.
Discharge Plan
Departure
Patient Disposition: Home (Routine Discharge)
Date of Disposition: 02/10/24
Time of Disposition: 07:44
Patient with high blood pressure during this ER visit?: Yes
Discharge Problem:
Dentalgia
Instructions: Dental Pain (DC)
Prescriptions:
New
penicillin V potassium 500 mg tablet
500 mg PO Q6H 7 Days Qty: 27 0RF
No Action
cephalexin 500 mg capsule
500 mg PO BID 7 Days Qty: 13 0RF
Referrals:
[facility]]
NONE,* [Family Provider] -
Activity Restrictions/Additional Instructions:
Take antibiotics as prescribed. Take Tylenol 650mg and ibuprofen 600mg every 6 hours as needed for pain.
Please follow-up with a dentist. Return to the ER with any worsening symptoms or fevers.
[email or web address]�offers free dental care for uninsured, low-wage earning adults and veterans in [facility]. �[phone]
Interventions
Interventions:
*Risk Screen - Suicide Last Done: 02/10/24 07:13
*General Assessment Last Done: 02/10/24 07:54
ED- Fall Risk Assessment Last Done: 02/10/24 07:54
*ED COVID-19 Vaccine History Last Done: 02/10/24 07:54
Discharge Date and Time
Print Language: AZERI
[2024-02-10] MEDS: TORADOL 30 MG IM (07:59)
[2024-02-10] MEDS: PEN VK 500 MG PO (07:59)
--- NOTE | 2024-02-10 08:07 | EDRN ---
Reviewed discharge instructions with patient. Verbalized understanding. Ambulated with steady gait to the lobby.
[2024-02-10 08:09] VITALS: BP 152/100
== END 2024-02-10 08:10 | disposition home or self-care (01) ==
LOC: EMR 07:09
PROVIDERS: EMERGENCY PHYSICIAN Emergency Medicine
DX: K08.89 Other specified disorders of teeth and supporting structures (principal); I10 Essential (primary) hypertension; K21.9 Gastro-esophageal reflux disease without esophagitis; F31.9 Bipolar disorder, unspecified; E28.2 Polycystic ovarian syndrome
CPT/HCPCS: 99284; 96372

== ENCOUNTER 2024-04-14 20:08 | Emergency (ER) | payer OTHER, SELFPAY ==
[2024-04-14 20:08] VITALS: BMI 57.6
[2024-04-14 20:20] VITALS: BP 185/126
[2024-04-14 20:55] LABS: Hematocrit 37.5 % (37.0-47.0); Mean Corpuscular Hgb 25.8 pg (27.0-31.0); Mean Corpuscular Volume 80.6 fL (81.0-99.0); Mean Platelet Volume 9.7 fL (7.4-10.4); Platelet Count 311 10^3/uL (130-400); Red Blood Cell Count 4.65 10^6/uL (4.20-5.40); White Blood Cell Count 12.6 10^3/uL (4.8-10.8)
[2024-04-14 21:08] LABS: Segmented Neutrophils 68 % (42-75)
[2024-04-14 21:09] LABS: ALT (SGPT) 83 U/L (0-35); AST (SGOT) 52 U/L (14-36); Absolute Neutrophils -Man Diff 8.5 10^3/uL (1.4-6.5); Albumin 4.1 g/dl (3.5-5.0); Alkaline Phosphatase 100 U/L (38-126); Band Neutrophils 0 % (0-3); Blood Urea Nitrogen 9 mg/dl (7-17); Calcium 9.2 mg/dl (8.4-10.2); Carbon Dioxide 30 mmol/L (22-30); Chloride 102 mmol/L (98-107); Eosinophils 2 % (0-6); Glucose 87 mg/dl (70-99); Lymphocytes 27 % (20-51); Monocytes 2 % (2-9); Normal RBC Morphology Yes; Platelets Checked Yes; Potassium 3.8 mmol/L (3.5-5.1); Sodium 138 mmol/L (135-145); Total Bilirubin 0.3 mg/dl (0.2-1.3); Total Cells Counted 100; Total Protein 6.7 g/dl (6.3-8.2); eGFR > 60.00
[2024-04-14 21:16] LABS: B-Hydroxybutyrate 0.05 mmol/L (0.02-0.27)
[2024-04-14 22:52] VITALS: BP 154/109
[2024-04-14 23:00] VITALS: BP 161/115
[2024-04-14 23:01] LABS: Glucose - Point of Care 96 mg/dl (70-99)
[2024-04-15 00:28] LABS: HCG, Serum Qualitative Screen Negative
[2024-04-15 00:36] LABS: Magnesium 1.8 mg/dl (1.6-2.3)
--- NOTE | 2024-04-15 03:38 | ED.GENMED ---
History of Present Illness
General
Chief Complaint: Blood Sugar Problem
Source: patient
Exam Limitations: none
Time Seen by Provider: 04/14/24 23:27
Nursing documentation reviewed up to this point in time: agreed with
History of Present Illness
History of Present Illness:
23-year-old female with past medical history of obesity and prediabetes presents to the ER for evaluation of right hand paresthesias. Patient reports that she woke up around 2 AM last night with paresthesias in the right hand. She says that
paresthesias/numbness persisted in the hand throughout the day but over the past hour or so seems to have resolved. She did not have any associated weakness. Symptoms were localized and she did not have any symptoms in the proximal right upper
extremity or in the left upper extremity, or in the lower extremities. She says she had some mild headache throughout the day but that has also resolved. No change in vision or speech. She denies any other complaints. She says that she was
concerned that it could be related to very high blood sugar and came to the ER for evaluation.
Past History
Past History
ED Past Medical History: GERD, HTN and Other (PCOS)
ED Past Surgical History: None
Social History
Tobacco: Non-smoker
Alcohol: None
Drug: Marijuana
Personal: Single
Living: with family
Employment: Employed
Review of Systems
Review of Systems
All Other Systems: ROS reviewed and negative except as documented in HPI and ROS
Constitutional: Denies fever
Respiratory: Denies trouble breathing
Cardiac: Denies chest pain
ABD/GI: Denies abdominal pain or vomiting
Musculoskeletal: Denies neck pain or back pain
Neurological: Reports headache and numbness; Denies dizzy or weakness
Phy Exam
Physical Exam
Physical Exam:
General: Awake, alert, oriented x3; no acute distress
Head: Normocephalic, atraumatic
Eyes: Conjunctiva normal, EOMI, pupils equal round and reactive to light bilaterally
Throat: Airway intact, handling secretions
Neck: Trachea midline, supple without meningismus
Lungs: Clear to auscultation bilaterally, no wheezing, rales, rhonchi
Heart: Regular rate and rhythm, no murmurs, gallops, or rubs
Neuro: Cranial nerves intact 2 through 12, speech fluid no dysarthria aphasia, no limb ataxia, motor and sensory intact in all extremities�specifically right upper extremity intact radial, median, ulnar nerve distribution
Skin: no rash
Extremities: No edema in extremities, equal pulses in all extremities
Scores
Heart Failure Risk
Heart Failure Risk Score: Not Applicable
Heart Score for Chest Pain Patients
STEMI patient?: Not applicable
Withdrawal Assessment of Alcohol
Withdrawal Assessment Completed?: Not applicable
Course
Orders/Labs/Results
Orders:
Orders
04/14/24 20:23
Bedside Glucose Monitoring-ONCE As Directed
04/14/24 20:34
B-Hydroxybutyrate Urgent
Complete Blood Count/With Diff Urgent
Comprehensive Metabolic Panel Urgent
HCG, Serum Qualitative Screen Urgent
Comment: ADD ON
Magnesium Urgent
Comment: ADD ON
Manual Differential Urgent
04/14/24 23:31
Add On- LAB Urgent
Tests Added?: HCG qual, magnesium level
Abnormal Lab Results
04/14/24
20:34
WBC 12.6 H 10^3/uL
(4.8-10.8)
MCV 80.6 L fL
(81.0-99.0)
MCH 25.8 L pg
(27.0-31.0)
MCHC 32.0 L g/dL
(33.0-37.0)
Abs Neuts (Manual) 8.5 H 10^3/uL
(1.4-6.5)
Creatinine 0.5 L mg/dL
(0.6-1.0)
AST 52 H U/L
(14-36)
ALT 83 H U/L
(0-35)
04/14/24 20:34
04/14/24 20:34
Vital Signs
Initial and Last Documented VS:
Initial Vital Signs
Temp Pulse Resp BP Pulse Ox
37.2 C 97 19 185/126 97
04/14/24 20:20 04/14/24 20:20 04/14/24 20:20 04/14/24 20:20 04/14/24 20:20
Last Documented Vital Signs
Temp Pulse Resp BP Pulse Ox
37.2 C 97 19 161/115 97
04/14/24 20:20 04/14/24 20:20 04/14/24 20:20 04/14/24 23:00 04/14/24 20:20
MDM/Problems Addressed
Differential Diagnosis Includes:
Peripheral neuropathy/radiculopathy, electrolyte derangement, migraine
MDM/Problems Addressed:
23-year-old female presents for evaluation after episode of right hand paresthesias/numbness that lasted much of the day and has since resolved. She did have mild associated headache which has also resolved. Vitals and exam as above. Neurologic
exam normal here. Suspect that this may have been positional/compressive peripheral nerve issue; nothing to suggest that this was a [employer] issue especially because symptoms were localized to the hand. Symptoms have resolved. She did have labs sent
off including a CBC and a CMP which were unremarkable�notably patient was worried about her glucose but glucose was normal in the 80s. No clear indication for CT head at this point with reassuring neurologic exam and complete resolution of
symptoms. Stable for discharge, advised regarding return precautions. Patient feels comfortable with this plan. All questions answered.
*Pulse Oximetry
Patient hypoxic: no
*Critical Care Note
Total Time (30-74mins, 75-104mins- exclusive of procedures): Not Applicable
Data Reviewed
Source: patient
Further Testing Considered But Not Given:
Considered CT head
ED Attending Note
-
Portions of this chart may have been created with voice recognition software.� Occasional wrong word or��sound alike� substitutions may have occurred due to the inherent limitations of voice recognition software.
Discharge Plan
Departure
Patient Disposition: Home (Routine Discharge)
Date of Disposition: 04/15/24
Time of Disposition: 00:36
Patient with high blood pressure during this ER visit?: Yes
Discharge Problem:
Paresthesias in right hand, Hypertension
Instructions: Hand Numbness, BLOOD PRESSURE
Prescriptions:
No Action
cephalexin 500 mg capsule
500 mg PO BID 7 Days Qty: 13 0RF
penicillin V potassium 500 mg tablet
500 mg PO Q6H 7 Days Qty: 27 0RF
Referrals:
UNKNOWN - PT DOES,NOT KNOW [Family Provider] -
Activity Restrictions/Additional Instructions:
Thank you for visiting the Emergency Department at [facility].
1. Please schedule a follow up appointment as directed. Call first thing tomorrow morning to make an appointment.
2. If indicated, please take your medications as instructed and indicated on discharge paperwork.
3. If any of your symptoms do not improve, or persist, or become more severe within 6-12 hours, please return to the emergency department for further care.
4. Please return to the emergency department if you develop a headache, neck pain/stiffness, fever greater than 100.4F, chest pain, shortness of breath, persistent nausea, vomiting, slurred speech, difficulty walking, numbness/tingling, weakness,
signs of infection or any other symptoms that are worrisome to you.
Please call [phone] if you have any questions.
Interventions
Interventions:
*Risk Screen - Suicide Last Done: 04/14/24 20:20
*General Assessment Last Done: 04/14/24 22:48
*Neglect/Abuse Screening Last Done: 04/14/24 20:20
*ED COVID-19 Vaccine History Last Done: 04/14/24 22:48
*Nursing Disposition Last Done: 04/15/24 00:45
ED- Neurological Assessment Last Done: 04/14/24 22:50
Discharge Date and Time
Discharge Date/Time: 04/15/24 00:46
Print Language: CITIZEN OF [place]
== END 2024-04-15 00:46 | disposition home or self-care (01) ==
LOC: EMR 20:08
PROVIDERS: EMERGENCY PHYSICIAN Emergency Medicine
DX: R20.2 Paresthesia of skin (principal); I10 Essential (primary) hypertension; E66.9 Obesity, unspecified; R73.03 Prediabetes; K21.9 Gastro-esophageal reflux disease without esophagitis
CPT/HCPCS: 99283; 80053; 82010; 82962; 83735; 84703; 85025

== ENCOUNTER 2024-07-20 07:41 | Emergency (ER) | payer OTHER, SELFPAY ==
[2024-07-20 07:47] VITALS: BP 173/94
--- NOTE | 2024-07-20 08:30 | ED.GENMED ---
History of Present Illness
General
Chief Complaint: Crisis Evaluation
Source: patient and family
Exam Limitations: none
Time Seen by Provider: 07/20/24 08:00
Nursing documentation reviewed up to this point in time: agreed with
History of Present Illness
History of Present Illness:
23 y/o F with h/o anxiety, depression, htn, PCOS
here with increased depressed thoughts the past 2 weeks
she did recently start a new job, she is working for [employer] (left [employer] to [employer]) and was feeling like her anxieyt was kicked up
so her psychiatrist 2 weeks ago increased the buspar and started propranolol
she feels that the anxiety is better but she has been more depressed, tearful at times
she also thinks a trigger is that she doesn' thave many friends and one of her only friends she had she decided she didn't want to be friends with him anymore
today while at work she became tearful and admitted to a co worker that she feels depressed and said that if a car were oging to hit her she wouldn't be sure she would move out of the way, but she also doesn't want to kill herself. she says 'these
are mostly just passive thoughts'
pt has had many admissions for depression and anxiety before
she doesn't think she needs to be admitted this time
has not beeen able to link up with a therapist because of her insurance
pt has no medical complaints
denies cp, sob, headache, visionc hagnes, weakness, syncope, vomiting,
Past History
Past History
ED Past Medical History: GERD, HTN and Other (PCOS)
ED Past Surgical History: None
Social History
Tobacco: Non-smoker
Alcohol: None
Drug: Marijuana
Personal: Single
Living: with family
Employment: Employed
Review of Systems
Review of Systems
Allergies reviewed?: Yes
All Other Systems: Not applicable
Phy Exam
Physical Exam
Physical Exam:
GENERAL: Alert , in no apparent distress, elevated BMI;
EYE: pupils equal and reactive
NECK: Supple
ENT: o/p clr, mmm.
CARDIAC: Regular rate and rhythm .
LUNGS: Clear breath sounds bilaterally, no acute respiratory distress, no wheezes/rales/rhonchi
ABDOMEN: Soft, without focal tenderness, no r/g, no cvat, normal bowel sounds
NEUROLOGICAL: Alert and oriented, no focal neuro deficits
SKIN: Warm and dry, skin intact.
MUSCULOSKELETAL: No edema, well perfused. neg shirlene's sign
PSYCH: Normal and appropriate interaction.
not tearful, communicative, not anxious , denies SI, HI, delusions
Course
Orders/Labs/Results
Orders:
Orders
07/20/24 07:52
1:1 Observation - Suicide/ Violent Behavior As Directed
Crisis Consult Urgent
Reason for Consult: si thoughts
Vital Signs
Initial and Last Documented VS:
Initial Vital Signs
Temp Pulse Resp BP Pulse Ox
36.9 C 102 20 173/94 96
07/20/24 07:47 07/20/24 07:47 07/20/24 07:47 07/20/24 07:47 07/20/24 07:47
Last Documented Vital Signs
Temp Pulse Resp BP Pulse Ox
36.9 C 105 17 134/94 95
07/20/24 07:47 07/20/24 08:49 07/20/24 08:49 07/20/24 08:49 07/20/24 08:49
MDM/Problems Addressed
Differential Diagnosis Includes:
depression, anxiety, stress
MDM/Problems Addressed:
23 y/o F
with h/o depression and anxiety
recent increase in buspar and addition of propranolol through psychiatriast after moving jobs
here today after admitted to coworker that she is sad
she has had passive thoughts like she wouldn't move out ofthe way of a vehicle bu also doesn't want to kill herself
she doesn't believe she needs inpatient
she thinks she needs someone to talk to
she has no medical complaitns
here with mom
on exam pt is hypertesive, h/o and didn't take her meds this morning
she has otherwise PCOS body habitus but no findings on exam
she is calm, cooperative and does not appear depressed
seen by crisis and not thought to be suicidal to need inpatient
pt apparently has free counseling through [employer] that she was ifnormed about
this will ikely be helpful
d/c home
*Critical Care Note
Total Time (30-74mins, 75-104mins- exclusive of procedures): Not Applicable
ED Attending Note
-
Portions of this chart may have been created with voice recognition software.� Occasional wrong word or��sound alike� substitutions may have occurred due to the inherent limitations of voice recognition software.
Discharge Plan
Departure
Patient Disposition: Home (Routine Discharge)
Date of Disposition: 07/20/24
Time of Disposition: 08:41
Patient with high blood pressure during this ER visit?: Yes
Condition: Fair
Covid-19: Not Applicable
Discharge Problem:
Depression
Instructions: Depression, Adult (DC), BLOOD PRESSURE
Prescriptions:
No Action
cephalexin 500 mg capsule
500 mg PO BID 7 Days Qty: 13 0RF
penicillin V potassium 500 mg tablet
500 mg PO Q6H 7 Days Qty: 27 0RF
Activity Restrictions/Additional Instructions:
PLEASE TRY TO REACH OUT FOR FREE COUNSELING SESSIONS
ALSO TOUCH BASE WITH YOUR PSYCHIATRIST
RETURN FOR ANY CONCERNS LIKE SUICIDAL THOUGHTS ETC
MAKE SURE TO TAKE YOUR BLOOD PRESSURE MEDICAITONS.
Interventions
Interventions:
*Risk Screen - Suicide Last Done: 07/20/24 07:47
*General Assessment Last Done: 07/20/24 07:47
*Neglect/Abuse Screening Last Done: 07/20/24 07:47
Discharge Date and Time
Print Language: PARAGUAYAN
[2024-07-20 08:49] VITALS: BP 134/94
== END 2024-07-20 10:45 | disposition home or self-care (01) ==
LOC: EMR 07:41
PROVIDERS: EMERGENCY PHYSICIAN Emergency Medicine
DX: F32.A Depression, unspecified (principal); F41.9 Anxiety disorder, unspecified; I10 Essential (primary) hypertension; E28.2 Polycystic ovarian syndrome; Z79.899 Other long term (current) drug therapy
CPT/HCPCS: 99283

== ENCOUNTER 2024-09-20 17:52 | Emergency (ER) | payer OTHER, SELFPAY ==
[2024-09-20 17:58] VITALS: BP 176/123
[2024-09-20 18:18] LABS: % Basophils 0.5 % (0-2); % Eosinophils 1.5 % (0-6); % Immature Granulocytes 0.4 % (0-0.5); % Lymphocytes 35.6 % (20.5-51.1); % Monocytes 6.4 % (1.7-9.3); % Neutrophils 55.6 % (42.2-75.2); Absolute Basophils 0.1 10^3/uL (0-0.2); Absolute Eosinophils 0.2 10^3/uL (0-0.7); Absolute Lymphocytes 3.9 10^3/uL (1.2-3.4); Absolute Monocytes 0.7 10^3/uL (0.1-0.6); Absolute Neutrophils 6.1 10^3/uL (1.4-6.5); Hematocrit 35.5 % (37.0-47.0); Hemoglobin 12.1 g/dL (12.0-16.0); Mean Corp Hgb Conc. 34.1 g/dL (33.0-37.0); Mean Corpuscular Hgb 26.1 pg (27.0-31.0); Mean Corpuscular Volume 76.5 fL (81.0-99.0); Mean Platelet Volume 9.7 fL (7.4-10.4); Nucleated Red Blood Cells % 0 %; Platelet Count 287 10^3/uL (130-400); Red Blood Cell Count 4.64 10^6/uL (4.20-5.40); Red Cell Dist. Width 13.4 % (11.5-14.5); White Blood Cell Count 10.9 10^3/uL (4.8-10.8)
[2024-09-20 18:36] LABS: HCG, Serum Qualitative Screen Negative
[2024-09-20 18:39] LABS: ALT (SGPT) 90 U/L (0-35); AST (SGOT) 50 U/L (14-36); Albumin 4.2 g/dl (3.5-5.0); Alkaline Phosphatase 142 U/L (38-126); Blood Urea Nitrogen 13 mg/dl (7-17); Carbon Dioxide 27 mmol/L (22-30); Chloride 101 mmol/L (98-107); Glucose 328 mg/dl (70-99); Sodium 136 mmol/L (135-145); Total Bilirubin 0.4 mg/dl (0.2-1.3); Total Protein 6.8 g/dl (6.3-8.2); eGFR > 60.00
[2024-09-20 18:40] LABS: Lipase 52 U/L (23-300)
[2024-09-20 18:44] LABS: Troponin I < 0.012 ng/ml
--- NOTE | 2024-09-20 22:38 | ED.GENMED ---
History of Present Illness
General
Chief Complaint: Chest Pain
Source: patient
Exam Limitations: none
Time Seen by Provider: 09/20/24 22:28
Nursing documentation reviewed up to this point in time: agreed with
History of Present Illness
History of Present Illness:
24-year-old female presents Emergency Department due to chest pain since 11 PM last night. She has had similar pain in the past. She has a slight chest pain at this time, but denies any shortness of breath. She has taken metformin in the past,
but has not taken it for at least 6 months.
Past History
Past History
ED Past Medical History: GERD, HTN, NIDDM, Psychiatric (Bipolar, PTSD) and Other (PCOS)
ED Past Surgical History: Other (Tooth removal)
Social History
Tobacco: Non-smoker
Alcohol: None
Drug: Marijuana
Personal: Single
Living: with family
Employment: Employed
Review of Systems
Review of Systems
Allergies reviewed?: Yes
All Other Systems: Not applicable
Constitutional: Reports no symptoms
EENT: Reports no symptoms
Respiratory: Reports no symptoms
Cardiac: Reports chest pain
ABD/GI: Reports no symptoms; Denies abdominal pain
: Reports no symptoms
Musculoskeletal: Reports no symptoms
Skin: Reports no symptoms
Neurological: Reports no symptoms
Endocrine: Reports no symptoms
Hematologic/Lymphatic: Reports no symptoms
Psychiatric: Reports no symptoms
Phy Exam
Physical Exam
Physical Exam:
Physical Exam
General: no apparent distress, not acutely ill, elevated BMI
Neck: supple. no meningeal signs. normal posterior pharynx
Heart: s1/s2 regular rate and rhythm, no murmur. equal radial
pulses.
HEENT: Pupils equal round reactive to light, EOMI
Lungs: no acute respiratory distress. clear bilaterally, chest wall tender to palpation, reproducing pain
Abdomen: normal bowel sounds. not tender. no CVAT
Neuro: alert and oriented. no focal neurological deficits cranial nerves II through XII intact
Skin: no rash
Psychiatric: well kept. interactive and cooperative
Extremities: no edema. no calf tenderness. negative homans. good distal pulses
Scores
Heart Score for Chest Pain Patients
STEMI patient?: Not applicable
Course
Orders/Labs/Results
Orders:
Orders
09/20/24 17:53
Electrocardiogram (*1) Urgent
Reason for Study: Chest Pain
EKG- Treatment ONCE
09/20/24 18:02
Test Result ONCE
09/20/24 18:12
Complete Blood Count/With Diff Urgent
Comprehensive Metabolic Panel Urgent
HCG, Serum Qualitative Screen Urgent
Lipase Urgent
Troponin I Urgent
09/20/24 22:42
METFORMIN HCl [Glucophage] 500 mg PO NOW STA
09/20/24 22:50
Vital Signs- Treatment ONCE
Frequency: Hourly
Abnormal Lab Results
09/20/24
18:12
WBC 10.9 H 10^3/uL
(4.8-10.8)
Hct 35.5 L %
(37.0-47.0)
MCV 76.5 L fL
(81.0-99.0)
MCH 26.1 L pg
(27.0-31.0)
Absolute Lymphs (auto) 3.9 H 10^3/uL
(1.2-3.4)
Absolute Monos (auto) 0.7 H 10^3/uL
(0.1-0.6)
Creatinine 0.5 L mg/dL
(0.6-1.0)
Glucose 328 H mg/dl
(70-99)
AST 50 H U/L
(14-36)
ALT 90 H U/L
(0-35)
Alkaline Phosphatase 142 H U/L
(38-126)
09/20/24 18:12
09/20/24 18:12
Vital Signs
Initial and Last Documented VS:
Initial Vital Signs
Temp Pulse Resp BP Pulse Ox
98.7 F 102 20 176/123 98
09/20/24 17:58 09/20/24 17:58 09/20/24 17:58 09/20/24 17:58 09/20/24 17:58
Last Documented Vital Signs
Temp Pulse Resp BP Pulse Ox
98.7 F 98 20 156/88 97
09/20/24 17:58 09/20/24 23:12 09/20/24 23:12 09/20/24 23:12 09/20/24 23:12
MDM/Problems Addressed
Differential Diagnosis Includes:
PE, ACS, costochondritis
MDM/Problems Addressed:
24-year-old female with chest wall pain, likely costochondritis. Do not suspect PE or ACS. Patient also with hyperglycemia, and has not been on her metformin for at least 6 months. Will start metformin at 500 twice daily and have patient
gradually increase to 1000 twice daily. Patient stable for discharge. Return precautions given
Chronic conditions affecting care: DM
Acute Exacerbation and/or Progression of Chronic Illness: DM
*Pulse Oximetry
Patient hypoxic: no
*EKG
Interpreted by ED Provider?: Yes
EKG Intrepretation Date: 09/20/24
EKG Intrepretation Time: 17:57
Interpretation: abnormal
Comparison EKG: no changes
Heart Rate: 101
Rate: tachycardiac
Rhythm: sinus tachycardia
[place]: normal axis
Interval: normal interval
QRS Pattern: normal QRS
Ischemia: no ischemia
*Bufferer Interpretation
Rate: normal and tachycardiac
Interpretation: normal
Heart Rate: 100
Rhythm: sinus
*Critical Care Note
Total Time (30-74mins, 75-104mins- exclusive of procedures): Not Applicable
Data Reviewed
Review of Other/Old Records Reveals: Labs (glucose 87 on 04/14/24)
Source: records
Further Testing Considered But Not Given:
cxr and chest ct not indicated
Patient Management
Social determinants of health affecting care: Living situation, Financial situation and Poor outpatient follow-up
Escalation/DeEscalation of care consider admission/obs:
admit not indicated
ED Attending Note
-
Portions of this chart may have been created with voice recognition software.� Occasional wrong word or��sound alike� substitutions may have occurred due to the inherent limitations of voice recognition software.
Discharge Plan
Departure
Patient Disposition: Home (Routine Discharge)
Date of Disposition: 09/20/24
Time of Disposition: 22:49
Patient with high blood pressure during this ER visit?: Yes
Condition: Good
Discharge Problem:
Acute chest wall pain, Hyperglycemia due to type 2 diabetes mellitus
Instructions: Chest Pain That Is Not Caused by the Heart (DC), BLOOD PRESSURE
Prescriptions:
New
metformin 500 mg tablet
500 mg PO BID Qty: 60 0RF
No Action
cephalexin 500 mg capsule
500 mg PO BID 7 Days Qty: 13 0RF
penicillin V potassium 500 mg tablet
500 mg PO Q6H 7 Days Qty: 27 0RF
Referrals:
NONE,* [Family Provider] -
Activity Restrictions/Additional Instructions:
Return for any concerns.
Interventions
Interventions:
*Risk Screen - Suicide Last Done: 09/20/24 17:58
*General Assessment Last Done: 09/20/24 17:58
*Neglect/Abuse Screening Last Done: 09/20/24 17:58
*Nursing Disposition Last Done: 09/20/24 23:15
Discharge Date and Time
Discharge Date/Time: 09/20/24 23:16
Print Language: GAMBIAN
[2024-09-20 23:12] VITALS: BP 156/88
[2024-09-20] MEDS: GLUCOPHAGE 500 MG PO (23:13)
== END 2024-09-20 23:16 | disposition home or self-care (01) ==
LOC: EMR 17:52
PROVIDERS: Emergency Medicine; EMERGENCY PHYSICIAN Emergency Medicine
DX: R07.89 Other chest pain (principal); E11.65 Type 2 diabetes mellitus with hyperglycemia; I10 Essential (primary) hypertension; R00.0 Tachycardia, unspecified
CPT/HCPCS: 99284; 80053; 83690; 84484; 84703; 85025; 93005

== ENCOUNTER 2024-09-28 13:01 | Emergency (ER) | payer OTHER, SELFPAY ==
[2024-09-28 13:16] VITALS: BP 178/119
[2024-09-28 13:34] LABS: Glucose - Point of Care 337 mg/dl (70-99)
[2024-09-28 13:42] LABS: % Basophils 0.5 % (0-2); % Eosinophils 1.4 % (0-6); % Immature Granulocytes 0.6 % (0-0.5); % Lymphocytes 31.5 % (20.5-51.1); % Monocytes 7.1 % (1.7-9.3); % Neutrophils 58.9 % (42.2-75.2); Absolute Basophils 0.1 10^3/uL (0-0.2); Absolute Eosinophils 0.2 10^3/uL (0-0.7); Absolute Immature Granulocytes 0.1 10^3/uL (0-0.05); Absolute Lymphocytes 3.3 10^3/uL (1.2-3.4); Absolute Monocytes 0.7 10^3/uL (0.1-0.6); Absolute Neutrophils 6.2 10^3/uL (1.4-6.5); Hematocrit 38.4 % (37.0-47.0); Hemoglobin 12.7 g/dL (12.0-16.0); Mean Corp Hgb Conc. 33.1 g/dL (33.0-37.0); Mean Corpuscular Hgb 25.8 pg (27.0-31.0); Mean Corpuscular Volume 77.9 fL (81.0-99.0); Nucleated Red Blood Cells % 0 %; Platelet Count 314 10^3/uL (130-400); Red Blood Cell Count 4.93 10^6/uL (4.20-5.40); Red Cell Dist. Width 13.2 % (11.5-14.5); White Blood Cell Count 10.5 10^3/uL (4.8-10.8)
[2024-09-28 13:57] LABS: ALT (SGPT) 94 U/L (0-35); AST (SGOT) 69 U/L (14-36); Albumin 4.3 g/dl (3.5-5.0); Alkaline Phosphatase 182 U/L (38-126); Blood Urea Nitrogen 12 mg/dl (7-17); Calcium 9.2 mg/dl (8.4-10.2); Carbon Dioxide 28 mmol/L (22-30); Chloride 102 mmol/L (98-107); Glucose 354 mg/dl (70-99); Potassium 4.4 mmol/L (3.5-5.1); Sodium 137 mmol/L (135-145); Total Bilirubin 0.3 mg/dl (0.2-1.3); Total Protein 6.8 g/dl (6.3-8.2); eGFR > 60.00
--- NOTE | 2024-09-28 15:15 | EDRN ---
Yessi Hanson PA in to see pt.
--- NOTE | 2024-09-28 15:17 | ED.GENMED ---
History of Present Illness
General
Chief Complaint: Blood Sugar Problem
Source: patient
Time Seen by Provider: 09/28/24 14:59
History of Present Illness
History of Present Illness:
24-year-old female with past medical history of hypertension, GERD, sju-eongqcy-coywtcgtk diabetes, anxiety and bipolar type II presenting to the emergency department for evaluation after she was at work today, developed a headache that was gradual
in onset, diffuse, nonradiating accompanied with some mild nausea, took her blood sugar and it was greater than 300. Patient was recently seen in this emergency little over 1 week ago and started on metformin for her diabetes, was taking 500 mg
twice daily, was going to increase this to 1000 mg twice daily today. Currently does not have a primary care but is looking for 1 as she will have active insurance on October 03. No photo or phonophobia, neck pain or stiffness, fevers or infectious
symptoms, focal weakness or numbness or any other concerns. Patient did not take anything for her headache prior to arrival.
Past History
Past History
ED Past Medical History: GERD, HTN, NIDDM, Psychiatric (Bipolar, PTSD) and Other (PCOS)
ED Past Surgical History: Other (Tooth removal)
Social History
Tobacco: Non-smoker
Alcohol: None
Drug: Marijuana
Personal: Single
Living: with family
Employment: Employed
Review of Systems
Review of Systems
All Other Systems: ROS reviewed and negative except as documented in HPI and ROS
Phy Exam
Physical Exam
Physical Exam:
GENERAL: Alert , in no apparent distress, Significantly overweight
HEAD: NCAT
EYE: Clear conjunctiva
NECK: Supple, no meningismus
ENT: o/p clr, mmm.
CARDIAC: Regular rate and rhythm .
LUNGS: Clear breath sounds bilaterally, no acute respiratory distress, no wheezes/rales/rhonchi
ABDOMEN: Soft, without focal tenderness, no r/g, no cvat
NEUROLOGICAL: Alert and oriented, no focal neuro deficits
SKIN: Warm and dry, skin intact.
MUSCULOSKELETAL: No edema, well perfused.
PSYCH: Normal and appropriate interaction.
Scores
Heart Failure Risk
Heart Failure Risk Score: Not Applicable
Heart Score for Chest Pain Patients
STEMI patient?: Not applicable
Withdrawal Assessment of Alcohol
Withdrawal Assessment Completed?: Not applicable
Course
Orders/Labs/Results
Orders:
Orders
09/28/24 13:30
Complete Blood Count/With Diff Urgent
Comprehensive Metabolic Panel Urgent
09/28/24 14:59
0.9% Sodium Chloride 1000 ml [Nss] 1,000 ml IV BOLUS
09/28/24 15:15
Ibuprofen [Motrin] 600 mg PO NOW STA
09/28/24 16:29
Bedside Glucose- Treatment ONCE
Abnormal Lab Results
09/28/24 09/28/24 09/28/24
13:21 13:30 16:38
MCV 77.9 L fL
(81.0-99.0)
MCH 25.8 L pg
(27.0-31.0)
Abs Immat Gran (auto) 0.1 H 10^3/uL
(0-0.05)
Absolute Monos (auto) 0.7 H 10^3/uL
(0.1-0.6)
Immature Gran % 0.6 H %
(0-0.5)
Creatinine 0.5 L mg/dL
(0.6-1.0)
Glucose 354 H mg/dl
(70-99)
AST 69 H U/L
(14-36)
ALT 94 H U/L
(0-35)
Alkaline Phosphatase 182 H U/L
(38-126)
POC Glucose 337 H mg/dl 224 H mg/dl
(70-99) (70-99)
09/28/24 13:30
09/28/24 13:30
Vital Signs
Initial and Last Documented VS:
Initial Vital Signs
Temp Pulse Resp BP Pulse Ox
98.2 F 106 20 178/119 96
09/28/24 13:16 09/28/24 13:16 09/28/24 13:16 09/28/24 13:16 09/28/24 13:16
Last Documented Vital Signs
Temp Pulse Resp BP Pulse Ox
98.2 F 102 16 137/85 98
09/28/24 13:16 09/28/24 16:51 09/28/24 16:51 09/28/24 16:51 09/28/24 16:51
MDM/Problems Addressed
Differential Diagnosis Includes:
Tension headache, migraine headache, hypertensive urgency, intracranial bleeding, DKA, HHNK, hyperglycemia without acidosis, less concern for infectious etiology
MDM/Problems Addressed:
24-year-old female presenting to the ER for evaluation of headache with gradual onset earlier this morning, no improvement at work, checked blood sugar which was greater than 300 causing her to come to the ER for further evaluation. Patient was
recently started on metformin here at this facility, currently without a primary care provider. Likely long-term diabetic but no recent A1c. Hypertension noted. Labs ordered from triage which does show a glucose of greater than 350 however has
normal anion gap. Chronic transaminitis is baseline. Will monitor blood pressure. Fluids ordered. Motrin for pain. Disposition pending.
Chronic conditions affecting care: DM
Acute Exacerbation and/or Progression of Chronic Illness: DM
*Pulse Oximetry
Patient hypoxic: no
*Critical Care Note
Total Time (30-74mins, 75-104mins- exclusive of procedures): Not Applicable
Data Reviewed
Review of Other/Old Records Reveals: Labs and Records
Patient Management
Escalation/DeEscalation of care consider admission/obs:
Repeat blood sugar 220. Blood pressure much improved. Patient reporting significant symptom improvement. I notified the primary care referral line as patient currently does not have a primary care provider so patient can get close follow-up.
Continue taking metformin as prescribed the other day. Patient aware of return precautions.
ED Attending Note
-
Portions of this chart may have been created with voice recognition software.� Occasional wrong word or��sound alike� substitutions may have occurred due to the inherent limitations of voice recognition software.
Discharge Plan
Departure
Patient Disposition: Home (Routine Discharge)
Date of Disposition: 09/28/24
Time of Disposition: 17:00
Patient with high blood pressure during this ER visit?: Yes
Discharge Problem:
Diabetes mellitus with hyperglycemia
Instructions: Type 2 Diabetes (DC)
Prescriptions:
No Action
cephalexin 500 mg capsule
500 mg PO BID 7 Days Qty: 13 0RF
penicillin V potassium 500 mg tablet
500 mg PO Q6H 7 Days Qty: 27 0RF
metformin 500 mg tablet
500 mg PO BID Qty: 60 0RF
Referrals:
NONE,* [Family Provider] -
Stand Alone Forms: Return to Work
Interventions
Interventions:
*Risk Screen - Suicide Last Done: 09/28/24 13:16
*General Assessment Last Done: 09/28/24 15:35
*Neglect/Abuse Screening Last Done: 09/28/24 13:16
*ED- Fall Risk Assessment Last Done: 09/28/24 15:35
*ED COVID-19 Vaccine History Last Done: 09/28/24 15:35
*Nursing Disposition Last Done: 09/28/24 17:15
ED- Neurological Assessment Last Done: 09/28/24 15:44
Discharge Date and Time
Discharge Date/Time: 09/28/24 17:16
Print Language: [place]
[2024-09-28] MEDS: MOTRIN 600 MG PO (15:34)
[2024-09-28] MEDS: NSS 1000 IV (15:41)
[2024-09-28 15:44] VITALS: BP 156/109
[2024-09-28 16:39] LABS: Glucose - Point of Care 224 mg/dl (70-99)
[2024-09-28 16:51] VITALS: BP 137/85
--- NOTE | 2024-09-28 16:56 | EDRN ---
Yessi JOSEPH was TT'd accucheck glucose result.
--- NOTE | 2024-09-28 17:15 | EDRN ---
Pt received 2 work notes as requested after this RN TT's Yessi JOSEPH as she was walking out.
== END 2024-09-28 17:16 | disposition home or self-care (01) ==
LOC: EMR 13:01
PROVIDERS: Emergency Medicine; EMERGENCY PHYSICIAN Emergency Medicine
DX: E11.65 Type 2 diabetes mellitus with hyperglycemia (principal); R51.9 Headache, unspecified; I10 Essential (primary) hypertension
CPT/HCPCS: 96360; 99284; 80053; 82962; 85025

== ENCOUNTER 2024-10-14 15:07 | Emergency (ER) | payer OTHER, SELFPAY ==
[2024-10-14 15:08] VITALS: BP 169/116
[2024-10-14 15:30] VITALS: BMI 56.6
--- NOTE | 2024-10-14 15:43 | ED.GENMED ---
History of Present Illness
General
Chief Complaint: Crisis Evaluation
Source: patient
Exam Limitations: none
Time Seen by Provider: 10/14/24 15:38
History of Present Illness
History of Present Illness:
See MDM
Past History
Past History
ED Past Medical History: GERD, HTN, NIDDM, Psychiatric (Bipolar, PTSD) and Other (PCOS)
ED Past Surgical History: Other (Tooth removal)
Social History
Tobacco: Non-smoker
Alcohol: None
Drug: Marijuana
Personal: Single
Living: with family
Employment: Employed
Phy Exam
Physical Exam
Physical Exam:
See MDM
Course
Orders/Labs/Results
Orders:
Orders
10/14/24 15:12
1:1 Observation - Suicide/ Violent Behavior As Directed
Crisis Consult Urgent
Reason for Consult: SI with Plan
10/14/24 15:43
Test Result ONCE
10/14/24 16:06
HCG, Urine Qualitative Screen Urgent
Date Specimen was Collected: 10/14/24
Time Specimen was Collected: 16:04
Urinalysis Reflex To Culture Urgent
Date Specimen was Collected: 10/14/24
Time Specimen was Collected: 16:04
Urine Drug Abuse Screen Urgent
Date Specimen was Collected: 10/14/24
Time Specimen was Collected: 16:04
Urine Microscopic Reflex Cult Urgent
Urine Culture Urgent
[place] Source: U
Specimen Description:
Date Specimen was Collected: 10/14/24
Time Specimen was Collected: 16:04
Abnormal Lab Results
10/14/24
16:06
Leukocyte Esterase Rfl 1+ A
(Negative)
Urine Bacteria (Reflex) Moderate A
(Negative)
Urine Albumin (Reflex) 2+ A
(Neg - Trace)
U Marijuana (THC) Screen Positive H
(Negative)
Vital Signs
Initial and Last Documented VS:
Initial Vital Signs
Temp Pulse Resp BP Pulse Ox
97.8 F 109 20 169/116 98
10/14/24 15:08 10/14/24 15:08 10/14/24 15:08 10/14/24 15:08 10/14/24 15:08
Last Documented Vital Signs
Temp Pulse Resp BP Pulse Ox
97.8 F 82 18 164/82 97
10/14/24 15:08 10/14/24 17:00 10/14/24 17:00 10/14/24 17:00 10/14/24 17:00
MDM/Problems Addressed
Differential Diagnosis Includes:
Note:
CHIEF COMPLAINT(S)
Thoughts of self-harm.
HISTORY OF PRESENT ILLNESS
The patient is a 24-year-old female (identifies as male) who presents with thoughts of self-harm. She reports that she has been experiencing significant stress related to her financial situation and family dynamics, specifically mentioning an
upcoming visit from her uncle next month. The patient recounts a particular trigger event where she was referred to by the wrong name at work, which exacerbated her current distress. She admits to having been in a similar facility in the past and
expresses a desire to be admitted again for support. She denies any recent hallucinations. The patient has not missed any medications recently but expresses a need for help with sleeping, specifically mentioning a desire for trazodone tonight.
SOCIAL DETERMINANTS AFFECTING HEALTH
The patient reports financial stress and family-related stressors, particularly regarding her uncle�s upcoming visit, as factors contributing to her current mental health state.
REVIEW OF SYSTEMS
General: Well appearing and non-toxic
HEENT: protecting airway
Neck: appears supple
CV: No evidence of cyanosis
Resp: No accessory muscle use
Abd: Non-distended
Extremities: No deformities
Neuro: alert
Psych: Visibly upset.Thoughts of self-harm, past use of psychiatric facilities, no recent hallucinations.
Skin: Intact
PLAN
The patient expresses a desire to be admitted for psychiatric support. Monitoring and evaluation in a facility setting are planned. The use of trazodone for assistance with sleeping will be considered.
DIFFERENTIAL DIAGNOSIS
The Differential Diagnosis includes, in no particular order and is not limited to:
1. Major depressive disorder
2. Generalized anxiety disorder
3. Adjustment disorder with depressed mood
4. Post-traumatic stress disorder
Disposition:
SUMMARY OF ENCOUNTER
The patient, a 24-year-old female, presented with thoughts of self-harm related to significant stressors such as financial difficulties and family dynamics. She expressed a desire to be admitted for psychiatric support and was evaluated in the
emergency department.
DISPOSITION
Transfer
CONSIDERATION FOR ADMISSION
The patient expressed a desire for admission to a psychiatric facility for support and was accepted to [facility] psychiatric unit.
PLAN
The patient will be transferred to [facility] psychiatric unit for further monitoring and support.
PATIENT EDUCATION AND COUNSELING
The mother of the patient was informed of return precautions and feels comfortable transporting the patient directly to [facility].
MEDICAL DECISION MAKING
The patient presented with acute psychiatric concerns necessitating psychiatric support and potential hospitalization. Social determinants of health, particularly family and financial stress, were considered in determining the suitable disposition
for the patient. The plan included consideration for admission to provide the appropriate care and support.
*Critical Care Note
Total Time (30-74mins, 75-104mins- exclusive of procedures): Not Applicable
ED Attending Note
-
Portions of this chart may have been created with voice recognition software.� Occasional wrong word or��sound alike� substitutions may have occurred due to the inherent limitations of voice recognition software.
Discharge Plan
Departure
Patient Disposition: Psych Facility
Date of Disposition: 10/14/24
Time of Disposition: 17:41
Discharge Problem:
Suicidal thoughts
Prescriptions:
No Action
cephalexin 500 mg capsule
500 mg PO BID 7 Days Qty: 13 0RF
penicillin V potassium 500 mg tablet
500 mg PO Q6H 7 Days Qty: 27 0RF
metformin 500 mg tablet
500 mg PO BID Qty: 60 0RF
Referrals:
NONE,* [Family Provider, Internal Medicine]
Activity Restrictions/Additional Instructions:
Please go directly to [facility]
Interventions
Interventions:
*Risk Screen - Suicide Last Done: 10/14/24 15:08
*General Assessment Last Done: 10/14/24 15:08
*Neglect/Abuse Screening Last Done: 10/14/24 15:30
*ED- Fall Risk Assessment Last Done: 10/14/24 15:30
*ED COVID-19 Vaccine History Last Done: 10/14/24 15:30
ED-Psychological Assessment Last Done: 10/14/24 15:30
Discharge Date and Time
Print Language: QATARI
[2024-10-14 16:15] LABS: Urine Albumin 2+ (Neg - Trace); Urine Bilirubin Negative (Negative); Urine Character Clear (Clear); Urine Color Yellow; Urine Glucose Negative (Negative); Urine Ketone Negative (Negative); Urine Leukocyte 1+ (Negative); Urine Nitrite Negative (Negative); Urine Occult Blood Negative (Negative); Urine Specific Gravity 1.025 (<1.030); Urine Urobilinogen Negative (Neg - 1+)
--- NOTE | 2024-10-14 16:23 | EDRN ---
Received patient sitting on the bed speaking to the farmworker machine. Patient is calm and cooperative. Patient stated that they have been having thoughts of suicide over the past 2 days. Patient stated that they do have a plan for committing suicide
and would act out on it. Patient stated that they would OD on their medications. Patient state that they stopped taking their medications for 4 months and 'stock piled them because I am afraid that I would not have access to them because of the
stated that the country is in'. Patient denies taking any extra doses of medications today. Patient stated that they spoke to her therapist today and was told to come to the ED for treatment.
Patient stated that she has been bullied most of their life and continues to be bullied. Stated that certain family members don't respect that they don't identify as Blanca and goes by Gera. Patient stated that one of the stressors is that their
grandfather came into their work today and started calling them Blanca instead of Gera. Patient stated that another stressor going on is that their uncle is coming to visit in November and he does not like them because they are rubin. Stated that the uncle
came out and said that he does not like them.
Patient stated that they feel 'like someone's is always watching me' when asked by Crisis if they were paranoid. Denies hallucinations.
[2024-10-14 16:24] LABS: HCG, Urine Qualitative Screen Negative
[2024-10-14 16:26] LABS: Urine Squamous Cell >30 /LPF (Few)
[2024-10-14 16:27] LABS: Urine Mucus Many
[2024-10-14 16:28] LABS: Urine Red Blood Cell 0-2 /HPF (0-2)
[2024-10-14 16:30] LABS: Urine Bacteria Moderate (Negative)
[2024-10-14 16:32] LABS: Amphetamines Negative (Negative); Barbiturates Negative (Negative); Benzodiazepines Negative (Negative); Buprenorphine Negative (Negative); Cocaine Negative (Negative); Marijuana Positive (Negative); Methadone Negative (Negative); Methamphetamines Negative (Negative); Opiates Negative (Negative); Phencyclidine Negative (Negative); Tricyclic Antidepressants Negative (Negative)
[2024-10-14 17:00] VITALS: BP 164/82
--- NOTE | 2024-10-14 17:52 | EDRN ---
Discharge instructions given to patient. Patient's parents are taking them directly to [facility].
== END 2024-10-14 17:54 ==
LOC: EMR 15:07
PROVIDERS: EMERGENCY PHYSICIAN Student in an Organized Health Care Education/Training Program
DX: R45.851 Suicidal ideations (principal); F31.9 Bipolar disorder, unspecified; I10 Essential (primary) hypertension; E11.9 Type 2 diabetes mellitus without complications; Z59.86 Financial insecurity
CPT/HCPCS: 99285; 80306; 81003; 81015; 81025; 87086

== ENCOUNTER 2024-11-16 14:18 | Emergency (ER) | payer SELFPAY ==
[2024-11-16 14:23] VITALS: BP 151/111
[2024-11-16 14:54] LABS: Hematocrit 40.1 % (37.0-47.0); Hemoglobin 13.2 g/dL (12.0-16.0); Mean Corp Hgb Conc. 32.9 g/dL (33.0-37.0); Mean Corpuscular Volume 78.8 fL (81.0-99.0); Nucleated Red Blood Cells % 0 %; Platelet Count 314 10^3/uL (130-400); Red Cell Dist. Width 14.1 % (11.5-14.5)
[2024-11-16 15:10] LABS: HCG, Serum Qualitative Screen Negative
[2024-11-16 15:11] LABS: ALT (SGPT) 144 U/L (0-35); AST (SGOT) 119 U/L (14-36); Albumin 4.6 g/dl (3.5-5.0); Alkaline Phosphatase 93 U/L (38-126); Blood Urea Nitrogen 11 mg/dl (7-17); Calcium 10.0 mg/dl (8.4-10.2); Carbon Dioxide 28 mmol/L (22-30); Chloride 105 mmol/L (98-107); Glucose 131 mg/dl (70-99); Potassium 4.0 mmol/L (3.5-5.1); Sodium 140 mmol/L (135-145); Total Protein 7.2 g/dl (6.3-8.2); eGFR > 60.00
[2024-11-16 15:32] LABS: Troponin I < 0.012 ng/ml
[2024-11-16 15:50] VITALS: BMI 59.4
[2024-11-16 15:51] VITALS: BP 138/87
[2024-11-16 16:00] VITALS: BP 116/64
[2024-11-16 17:04] LABS: D-Dimer 0.31 ug/mlFEU (0.00-0.50)
[2024-11-16 17:07] VITALS: BP 116/61
--- NOTE | 2024-11-16 18:46 | ED.GENMED ---
History of Present Illness
General
Chief Complaint: Chest Pain
Source: patient
Exam Limitations: none
Time Seen by Provider: 11/16/24 16:13
History of Present Illness
History of Present Illness:
Chest pain and shortness of breath since this morning. Midsternal. No radiation no diaphoresis. Has had previously in the past. Symptoms have resolved upon my evaluation in the room. But symptoms lasted continuously for 5 to 6 hours.
Past History
Past History
ED Past Medical History: GERD, HTN, NIDDM, Psychiatric (Bipolar, PTSD) and Other (PCOS)
ED Past Surgical History: Other (Tooth removal)
Social History
Tobacco: Non-smoker
Alcohol: None
Drug: Marijuana
Personal: Single
Living: with family
Employment: Employed
Review of Systems
Review of Systems
All Other Systems: Not applicable
Constitutional: Denies fever
Cardiac: Denies palpitations or syncope
ABD/GI: Reports no symptoms
Phy Exam
Physical Exam
Physical Exam:
GENERAL: Alert and oriented in no apparent distress
EYE: Orbits normal.
NECK: Supple, no significant adenopathy.
ENT: Pharynx without erythema
CARDIAC: Regular rate and rhythm without any obvious murmurs.
LUNGS: Clear breath sounds,normal
ABDOMEN: Soft, without focal tenderness or distention. Elevated BMI
NEUROLOGICAL: Alert and oriented , grossly non-focal
SKIN: Warm and dry, no rash or lesion, no discoloration, skin intact.
MUSCULOSKELETAL: No edema,no deformity.Good color
PSYCH: Normal and appropriate interaction.
Scores
Heart Score for Chest Pain Patients
STEMI patient?: No
History: Slightly or Non-Suspicious
ECG: Normal
Age: </= 45 years
Risk Factors: No Risk Factors
Troponin: </= Normal Limit
Heart Score for Chest Pain Patients: 0
Heart Score Risk: 2.5% MACE over next 6 weeks
Course
Orders/Labs/Results
Orders:
Orders
11/16/24 14:19
EKG [Electrocardiogram (*1)] Urgent
Reason for Study: Chest Pain
EKG- Treatment ONCE
11/16/24 14:23
Cardiac Monitoring- Treatment ONCE
IV Insert/Care/Rem.- Treatment PRN
Test Result ONCE
O2 Therapy [RESP] Urgent
Titrate/Wean O2 to maintain O2 sat greater than (%): 90
Special Instructions: Maintain sats >/=90%
Pulse Ox/spot Check [RESP] Urgent
Quantity: 1
Special Instructions: ON ROOM AIR
11/16/24 14:41
Complete Blood Count/With Diff Urgent
Comprehensive Metabolic Panel Urgent
HCG, Serum Qualitative Screen Urgent
Comment: Notify provider if positive test present
Troponin I Urgent
11/16/24 16:13
CXR2 [CR Chest - 2 Views ] Urgent
Comment:
Reason For Exam: sob
11/16/24 16:39
D-Dimer Urgent
Abnormal Lab Results
11/16/24
14:41
WBC 11.1 H 10^3/uL
(4.8-10.8)
MCV 78.8 L fL
(81.0-99.0)
MCH 25.9 L pg
(27.0-31.0)
MCHC 32.9 L g/dL
(33.0-37.0)
Absolute Neuts (auto) 6.9 H 10^3/uL
(1.4-6.5)
Absolute Monos (auto) 0.8 H 10^3/uL
(0.1-0.6)
Creatinine 0.5 L mg/dL
(0.6-1.0)
Glucose 131 H mg/dl
(70-99)
AST 119 H U/L
(14-36)
ALT 144 H U/L
(0-35)
11/16/24 14:41
11/16/24 14:41
Vital Signs
Initial and Last Documented VS:
Initial Vital Signs
Temp Pulse Resp BP Pulse Ox
98.1 F 119 18 151/111 98
11/16/24 14:23 11/16/24 14:23 11/16/24 14:23 11/16/24 14:23 11/16/24 14:23
Last Documented Vital Signs
Temp Pulse Resp BP Pulse Ox
97.6 F 78 14 116/61 98
11/16/24 15:51 11/16/24 17:07 11/16/24 17:07 11/16/24 17:07 11/16/24 17:07
MDM/Problems Addressed
Differential Diagnosis Includes:
Patient medically stable and nontoxic. Symptoms resolved. Cardiac testing negative. Initially tachycardic but this resolved. Low suspicion for pulmonary emboli with negative D-dimer. Chest x-ray is negative. With prolonged symptoms since early
morning do not feel repeat cardiac testing is warranted. Discharged to follow-up. Chronic elevated transaminases
*Radiology
Radiology exam reviewed: radiology read reviewed (Negative)
*Pulse Oximetry
SaO2: 98
Oxygen Mode of Delivery: Room air
Patient hypoxic: no
*EKG
Interpreted by ED Provider?: Yes
Interpretation: abnormal
Comparison EKG: changes noted
Heart Rate: 116
Rhythm: sinus
[place]: normal axis
Interval: normal interval
QRS Pattern: normal QRS
Ischemia: no ischemia
*Critical Care Note
Total Time (30-74mins, 75-104mins- exclusive of procedures): Not Applicable
Data Reviewed
Review of Other/Old Records Reveals: Labs, Records and Testing
ED Attending Note
-
Portions of this chart may have been created with voice recognition software.� Occasional wrong word or��sound alike� substitutions may have occurred due to the inherent limitations of voice recognition software.
Discharge Plan
Departure
Patient Disposition: Home (Routine Discharge)
Date of Disposition: 11/16/24
Time of Disposition: 18:48
Patient with high blood pressure during this ER visit?: No
Discharge Problem:
Anterior chest pain/short of breath, Transaminitis
Instructions: Shortness of breath, Chest pain - Discharge instructions
Prescriptions:
No Action
No Current Medications
0
Referrals:
Crista Franklin MD, Resident [Family Provider, General] - Follow up in 2-3 days
Activity Restrictions/Additional Instructions:
Your liver enzymes are elevated mildly. This has been a recurring issue. Follow this up with your primary physician
Interventions
Interventions:
*Risk Screen - Suicide Last Done: 11/16/24 14:23
*General Assessment Last Done: 11/16/24 15:51
*Neglect/Abuse Screening Last Done: 11/16/24 14:23
*ED- Fall Risk Assessment Last Done: 11/16/24 15:51
*ED COVID-19 Vaccine History Last Done: 11/16/24 15:51
ED- Cardiac Assessment Last Done: 11/16/24 15:51
Discharge Date and Time
Print Language: GREENLAND[place]
[2024-11-16 18:55] VITALS: BP 125/82
== END 2024-11-16 18:56 | disposition home or self-care (01) ==
LOC: EMR 14:18
PROVIDERS: EMERGENCY PHYSICIAN Emergency Medicine
DX: R07.89 Other chest pain (principal); R06.02 Shortness of breath; R74.01 Elevation of levels of liver transaminase levels; I10 Essential (primary) hypertension; E11.9 Type 2 diabetes mellitus without complications
CPT/HCPCS: 99285; 71046; 80053; 84484; 84703; 85025; 85379; 93005

== ENCOUNTER 2024-12-29 14:29 | Emergency (ER) | payer SELFPAY ==
--- NOTE | 2024-12-29 16:04 | ED.GENMED ---
History of Present Illness
General
Chief Complaint: Musculo-Skeletal Complaint
Source: patient
Exam Limitations: none
Time Seen by Provider: 12/29/24 15:57
History of Present Illness
History of Present Illness:
24yoF with a history of obesity presenting for evaluation of a right ankle injury. Patient was walking in a parking lot yesterday when she stepped into a pothole and rolled her right ankle. She heard a crack. Patient was able to ambulate
throughout the day today but noticed a clicking sound and increased pain with weightbearing. Pain is primarily located on the medial ankle. No paresthesias. She has a history of multiple prior ankle sprains.
Past History
Past History
ED Past Medical History: GERD, HTN, NIDDM, Psychiatric (Bipolar, PTSD) and Other (PCOS)
ED Past Surgical History: Other (Tooth removal)
Social History
Tobacco: Non-smoker
Alcohol: None
Drug: Marijuana
Personal: Single
Living: with family
Employment: Employed
Phy Exam
General Physical Exam
General Presentation: well appearing and no apparent distress
General Skin: warm and dry
General Habitus: normal
General Mental: alert
Neurological Exam
Neurological Exam: alert
[place] Coma Scale
Eye Opening: Spontaneous
Verbal Response: Oriented
Motor Response: Obeys Commands
GCS Total Score: 15
Musculoskeletal Exam
Musculoskeletal Exam: other (R ankle: No deformity or significant soft tissue swelling. No tenderness to palpation. ROM intact. 2+ DP pulse and sensation intact. )
Skin Exam
Skin Exam: normal color and warm/dry
Psychiatric Exam
Psychiatric Exam: normal mood/affect
Course
Orders/Labs/Results
Orders:
Orders
12/29/24 14:32
CR Ankle - Right Min 3 Views * Urgent
Comment:
Reason For Exam: injury
12/29/24 14:33
CR Foot - Right Min 3 Views Urgent
Comment:
Reason For Exam: injury
12/29/24 16:05
Maurice Wrap Right-Treatment ONCE
Comment: ankle
Vital Signs
Initial and Last Documented VS:
Initial Vital Signs
Temp Pulse Resp Pulse Ox
98.2 F 114 20 97
12/29/24 14:30 12/29/24 14:30 12/29/24 14:30 12/29/24 14:30
Last Documented Vital Signs
Temp Pulse Resp Pulse Ox
98.2 F 114 20 97
12/29/24 14:30 12/29/24 14:30 12/29/24 14:30 12/29/24 16:05
MDM/Problems Addressed
Differential Diagnosis Includes:
24yoF here with R ankle pain after an injury yesterday. No deformity on exam and ROM is intact. RLE is neurovascularly intact. Differential diagnosis includes: fracture vs. sprain
X-rays of R foot/ankle obtained in triage which are negative for fractures. Offered crutches/air cast which patient declines. Supportive care discussed and advised f/u with orthopedics if symptoms persist.
*Pulse Oximetry
SaO2: 97
Oxygen Mode of Delivery: Room air
Patient hypoxic: no (97%)
*Critical Care Note
Total Time (30-74mins, 75-104mins- exclusive of procedures): Not Applicable
ED Attending Note
-
Portions of this chart may have been created with voice recognition software.� Occasional wrong word or��sound alike� substitutions may have occurred due to the inherent limitations of voice recognition software.
Discharge Plan
Departure
Patient Disposition: Home (Routine Discharge)
Date of Disposition: 12/29/24
Time of Disposition: 16:05
Patient with high blood pressure during this ER visit?: No
Discharge Problem:
Right ankle sprain
Instructions: Ankle sprain - ED (DC)
Prescriptions:
No Action
No Current Medications
0
Referrals:
Jae Hassan MD [Active, Orthopedics]
Activity Restrictions/Additional Instructions:
Rest, ice, compress, and elevate your ankle. Take ibuprofen as needed for pain.
Please follow-up with orthopedics if symptoms persist.
Interventions
Interventions:
*General Assessment Last Done: 12/29/24 14:30
Discharge Date and Time
Print Language: FRISIAN
== END 2024-12-29 17:00 | disposition home or self-care (01) ==
LOC: EMR 14:29
PROVIDERS: EMERGENCY PHYSICIAN Student in an Organized Health Care Education/Training Program
DX: S93.401A Sprain of unspecified ligament of right ankle, initial encounter (principal); X50.1XXA Overexertion from prolonged static or awkward postures, initial encounter; Y93.01 Activity, walking, marching and hiking; Y92.481 Parking lot as the place of occurrence of the external cause; E11.9 Type 2 diabetes mellitus without complications; I10 Essential (primary) hypertension
CPT/HCPCS: 99283; 73610; 73630